=== PATIENT | male | born 1950 | race Caucasian/White ===

== ENCOUNTER 2022-10-28 08:20 | Outpatient (REF) | payer OTHER, SELFPAY ==
--- NOTE | 2022-10-28 08:28 | EMG_ITS ---
Bilateral tibial and peroneal motor studies were performed. Bilateral superficial peroneal and sural sensory studies were performed. Tibial H reflexes were obtained and paraspinal muscles were tested with a needle. IMPRESSION: [id number] axonal sensory motor chronic peripheral neuropathy. MD DELMER Davenport/ALEXIS / [phone]
== END 2022-10-28 08:21 | disposition home or self-care (01) ==
LOC: HO.NEURO 08:20
PROVIDERS: PCP Internal Medicine; Visit Provider Internal Medicine
DX: M62.81 Muscle weakness (generalized) (principal); R20.2 Paresthesia of skin
CPT/HCPCS: 95860; 95886; 95907; 95911

== ENCOUNTER 2023-07-21 07:51 | Outpatient (AMB) | payer OTHER, SELFPAY ==
--- NOTE | 2023-07-21 07:56 | A.OFFVIS_ITS ---
Vital Signs 07/21/23 08:08 Height 5 ft 9 in Weight 129 lb BMI 19.0 BP 126/86 Blood Pressure Location Rt brachial Position Sitting Pulse 56 Pulse Source Pulse Oximeter Pulse Oximetry (%) 100 Oxygen Delivery Method Room Air Intake Visit Reasons: ENP-Leg weakness/Unsta gait/lighthead - LVMw/add Intake Note: Patient presents for leg weakness,unstable gait. Allergies No Known Allergies Allergy (Verified 07/21/23 08:09) Medication List - Last Reconciled 07/21/23 by STEVEN Joy alpha lipoic acid 600 mg PO DAILY 30 days amlodipine 10 mg PO DAILY folic acid 1 mg PO DAILY multivitamin 1 tab PO DAILY HPI Comments Details: 73-yr-old male presents for new pt evaluation of gait difficulty. Pt reports for at least 6 months, when he stands up after sitting for a while or getting up from bed, has BLE numbness and tingling- like air in his posterior calves, and less so in bilateral thighs. When he stands up, he feels off- balance, like being pulled to the right or the left. Sometimes when on the ladder, he feels he is pulled to the side. Once when he was standing talking to someone for 45 minutes, and then it was difficult to initiate a step. He states he did PT, but it was helpful. Does exercises on his own, does not make a difference. He endorses occasional non-radiating neck pain. Pt denies foot numbness (he states he can feel the ground when walking), falls, leg cramps, weakness, low back pain. Pt states he has seen many providers, but no clear etiology for BLE numbness/tingling and gait difficulties have been identified. Pt states he is scheduled for CTA head/neck and Thoracic MRI. Pt is right handed. ADL status: Ind IADL status: Ind Fine-motor skills: No issues Micrographia: No issues Vision changes: denies vision changes, diplopia Hypophonia: Denies Hyposmia: Denies Dysphagia: Denies Drooling: Denies Orthostatic lightheadedness: Briefly. Occasional brief orthostatic internal spinning dizzines GI: Denies issue. Denies constipation. : Denies Slowness: Denies Freezing episodes: Only if sitting or standing a long time. Tremor: Denies Involuntary movements: Denies Dyskinesia: Denies Stiffness: Denies. Again sometimes occasional neck pain nonradiating. Paresthesias: as above Gait changes: as above Sleep difficulty: No issues Parasomnias: Denies Memory impairment: Hallucinations: States memory is good Usual exercise: does exercise, push-ups, weight training 4-5 x's every day- thought this would help the leg s/s, but it didn't. History of concussion/head injury? Denies History of neuroleptic (metoclopramide/antipsychotics) use? Denies History of psychiatric hospitalizations? Denies History of occupational chemical exposures? 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 Used to smoke- pt quit. Remote h/o alcohol intake- pt cannot quantify, states quit many yrs ago. Family history of movement disorders? Denies Family history of mood disorder or suicide? Denies Per review of [facility] and [facility] [place]: He has seen Dr Lindo, [facility] neurology, Dr Bassett, [facility] neurosurgery, and Dr Love, [facility] vascular. * 08/06/2022, Brain MRI, [facility]: No evidence of acute infarct, extensive white matter changes likely due to chronic small vessel ischemic changes. * 11/01/23, BLE EMG/NCS: [id number] axonal sensory motor chronic peripheral neuropathy. * 06/16/23, c-spine MRI w/o: 1. 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 Right vertebral artery flow-void is smaller in caliber than prior MRI from 2012 with circumferential abnormal high T2 signal suggesting dissection of indeterminate age. CTA of the neck is suggested for complete assessment. 2. Multilevel degenerative changes with mild canal stenosis at C5-6, though there is no cord compression at any level. 3. Mild multilevel neural foraminal stenosis due to uncovertebral and facet spurring. There is also edema in the right C4-5 facet suggesting underlying inflammation/stress. * 04/27/23, per Dr Lindo note- notes that pt has had at least 2 neuro visits at [facility] since 2012 for h/o of cramps and gait difficulties * 07/13/23, per Dr Love's notes: PVD, but not likely to be causing pt's BLE s/s. Right ABIs?noncompressible of the PT, DP 1.14 within normal values. Although some?vessel calcification, it does have a normal amplitude.? In the left side, WILLY is 1.33 within normal values, and it does have a normal amplitude as well. * 07/19/23, per Dr Bassett's note: c-spine and l-spine MRI showed age-related degenerative changes, which were not felt to be of a degree to cause pt's BLE s/s. Pt was advised to have t-spine MRI. [facility] lab work-up 07/08/23: BMP normal 12/2023: Sed rate 11 B6 9.3 B12 582 Folic acid 29.2 Thiamine 83.5 MMA 166 CK 193 Thiamine 83.5 SPEP no monoclonal protein present RICKI no monoclonal protein identified SPEP no monoclonal protein identified PFSH Medical History Tobacco use Surgical History (Updated 07/21/23 @ 16:02 by STEVEN Joy) H/O hemorrhoidectomy History of nephrectomy, left Social History (Updated 07/21/23 @ 08:10 by REJI Duran) Alcohol intake: never Patient Tobacco Use Status: Former Tobacco user Review of Systems Const All systems reviewed & are unremarkable except as noted in HPI and below Physical Exam Vital Signs: Last Vital Signs Pulse 56 07/21/23 08:08 BP 126/86 07/21/23 08:08 Pulse Ox 100 07/21/23 08:08 Oxygen Delivery Method Room Air 07/21/23 08:08 BMI result Body Mass Index 19.0 Const General: cooperative and no acute distress HEENT Face and sinus: Yes other (Decreased expression and blink) Resp Effort & Inspection: normal respiratory effort and able to speak in complete sentences Cardio Rate: regular rate Rhythm: regular rhythm Neuro Other: General: A&O x's 3 Expression: Intact, mild Voice: Intact Tremor: None Tone: None Dyskinesia: None BUE MYRON: right intact, left poor fluidity. FFM: Intact Foot taps: Poor fluidity on left Gait: Slow to stand w/o hands, no right arm swing, decreased left arm swing, mild hand movements, short steps, base varies- wider at times, slight RLE antalgic step. Pull test: Normla Psych: Pleasant affect General: Normal light touch and pain sensation Cranial nerves: Yes CN's II-XII intact bilaterally (w/ mild right facial asymmetry (? baseline)) Deep tendon reflexes (DTR's): Right triceps reflex intensity grade: 2+, Left triceps reflex intensity grade: 2+, Rt Biceps (C5, C6): 2+, Left biceps reflex intensity grade: 2+, Right brachioradialis reflex intensity grade: 2+, Left brachioradialis reflex intensity grade: 2+, Right patellar reflex intensity grade: 2+ and Left patellar reflex intensity grade: 2+ Coordination: [id number] test normal Psych Mental Status: mental status grossly normal Speech and movement: Normal speech and movement present Affect: normal affect Attitude: cooperative Thought process: Normal thought process present Results Reviewed Results Reviewed: 06/16/23, MRI Cervical Spine W/O Contrast Reason: Myelopathy. TECHNIQUE: MRI of the cervical spine was performed without intravenous contrast utilizing sagittal T1, sagittal T2, sagittal STIR, axial gradient echo, and axial T2-weighted sequences. COMPARISON: MRI, 10/27/2011. FINDINGS: ALIGNMENT, VERTEBRAE, MARROW, AND DISCS: There is slight reversal of the normal cervical lordosis without subluxation. Vertebral body heights are preserved. There is severe disc space narrowing at C3-4, as well as moderate disc space narrowing at C5-6 and C6-7. Small multilevel anterior osteophytes are seen as well as scattered mild Modic type I and type II endplate changes. There is also edema in the right C4-5 facets. POSTERIOR FOSSA AND CORD: Visualized posterior fossa is normal. The cervical cord is normal in signal and caliber. PARASPINAL TISSUES: The right vertebral artery is smaller in caliber than the MRI from 2012 with circumferential surrounding high T2 signal. There is also apparent focal occlusion of the proximal left cervical ICA with reconstitution, also new from the prior MRI. Subcentimeter right thyroid nodule is seen, which does not require further imaging assessment. DETAILED FINDINGS BY LEVEL: C2-C3: There is no significant disc bulge or canal stenosis. Left-sided facet spurring is seen without significant neural foraminal compromise. C3-C4: There is broad-based disc osteophyte without canal stenosis. Uncovertebral and facet spurring results in mild bilateral neural foraminal stenosis. C4-C5: There is disc osteophyte with a tiny central protrusion, though there is no significant canal stenosis. Uncovertebral and facet spurring result in mild bilateral neural foraminal stenosis. C5-C6: There is broad-based disc osteophyte and posterior ligamentous buckling resulting in mild canal stenosis. Uncovertebral and facet spurring results in mild bilateral neural foraminal stenosis. C6-C7: There is disc osteophyte without significant canal stenosis. Uncovertebral spurring results in mild bilateral neural foraminal stenosis. C7-T1: No significant canal stenosis or neural foraminal narrowing. IMPRESSION: 1. 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 Right vertebral artery flow-void is smaller in caliber than prior MRI from 2012 with circumferential abnormal high T2 signal suggesting dissection of indeterminate age. CTA of the neck is suggested for complete assessment. 2. Multilevel degenerative changes with mild canal stenosis at C5-6, though there is no cord compression at any level. 3. Mild multilevel neural foraminal stenosis due to uncovertebral and facet spurring. There is also edema in the right C4-5 facet suggesting underlying inflammation/stress. 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 Discussed with patient that we can not comment today on the etiology of his bilateral lower extremity symptoms, as we do need to obtain additional records and see the results of his upcoming test results. Trial alpha lipoic acid 600 mg daily in hopes this reduces tingling sensation. Discussed doing PT again, patient declines at this time. Pt seen in collaboration w/ Dr Tammy Jules. Follow-up upon review of above. And in clinic in 6 months or sooner p.r.n.. Medications: New alpha lipoic acid 600 mg PO DAILY 30 tabs 6RF 30 days G62.9 - Polyneuropathy, unspecified Coding Level of Care Code New Pt Level 4 (00362) Diagnoses Gait difficulty R26.9 Sensory motor neuropathy G62.9
[2023-07-21 08:08] VITALS: BP 126/86; PULSE 56; O2SAT 100; BMI 19.0
== END 2023-07-21 09:25 | disposition home or self-care (01) ==
PROVIDERS: PCP Internal Medicine; Visit Provider Nurse Practitioner Family
DX: R26.9 Unspecified abnormalities of gait and mobility (principal); G62.9 Polyneuropathy, unspecified
CPT/HCPCS: 99204

== ENCOUNTER → 2023-07-21 07:51 | Outpatient (BNVA) | payer OTHER, SELFPAY | PROVIDERS: PCP Internal Medicine; Visit Provider Nurse Practitioner Family | DX: R26.9 Unspecified abnormalities of gait and mobility (principal); G62.9 Polyneuropathy, unspecified | CPT/HCPCS: 99202 ==

== ENCOUNTER 2024-03-28 08:54 | Outpatient (AMB) | payer OTHER, SELFPAY ==
--- OUTSIDE RECORDS SUMMARY | 2024-03-28 08:59 | XMS_ITS | Continuity of Care Document ---
Author Organization [facility] Address [address] [place] [id number] Care Team Providers Care Case Monitor Name Role Phone Roldan Price DO [facility] Care Phys[id number] Date(s): 02/22/24 - 02/29/24 [facility] [address] [place], [place] [address] Attending Physician: Humaira AGUILA, Belkys Thapa Admitting Physician: Humaira AGUILA, Belkys Thapa Referring Physician: Roldan Prcie DO Encounter Type: Office Visit Allergies, Adverse Reactions, Alerts No Known Allergies Medications aspirin 81 mg oral capsule 1 capsule = 81 mg, By Mouth, Every 24 hours, # 30 capsule, 0 Refills, Maintenance, 08/18/23 5:01:00 PM EDT, Partial fill upon patient request if the prescription is for a schedule II opioid drug. Start Date: 08/18/23 Status: Ordered Quantity: 30.0 Unit: capsule Repeat number: 1 atorvastatin 20 mg oral tablet 1 tablet = 20 mg, By Mouth, Daily, # 90 tablet, 2 Refills, Maintenance, 08/23/23 12:21:00 PM EDT, Tablet, [id number], Partial fill upon patient request if the prescription is for a schedule II opioid drug., 175, cm, 07/19/23 8:54:00 EDT, Height, 55.7, kg, 01/04/22 8:17:00 EDT, Dry Weight Start Date: 08/23/23 Status: Ordered Quantity: 90.0 Unit: tablet Repeat number: 3 Cymbalta Capsule = 30 mg, By Mouth, Daily, 0 Refills, Maintenance, 06/30/17 8:04:06 AM EDT Start Date: 06/30/17 Status: Ordered Repeat number: 1 docusate sodium 100 mg oral capsule 1 capsule = 100 mg, By Mouth, 2 times a day, # 60 capsule, 0 Refills, Maintenance, 12/03/23 10:34:00AM EDT, Capsule, [facility] #[id number], Partial fill upon patient request if the prescriptionis for a schedule II opioid drug., 175, cm, 12/03/23 8:13:00 EDT, Height, 66, kg, 12/01/23 16:42:00EDT, Dry Weight Start Date: 12/03/23 Status: Ordered Quantity: 60.0 Unit: capsule Repeat number: 1 folic acid 1 mg oral tablet 1 mg, 1, tablet, By Mouth, Daily, Refills 0, Maintenance, 06/30/17 8:04:02 AM EDT Start Date: 06/30/17 Status: Ordered Repeat number: 1 Lidoderm 5% film 1 each, Topically, Daily, # 30 patch, 0 Refills, Maintenance, 03/25/21 2:36:00 PM EST, [facility] #[id number], Partial fill upon patient request if the prescription is for a schedule II opioid drug., 1 each Topically Daily, 176, cm, 01/02/21 9:18:00 EDT, Height, 64, kg, 01/02/21 9:18:00 EDT, DryWeight Start Date: 03/25/21 Status: Ordered Quantity: 30.0 Unit: patch Repeat number: 1 Norvasc 10 mg oral tablet 1 tablet = 10 mg, By Mouth, Daily, 0 Refills, Maintenance, 06/19/13 3:04:28 PM EDT Start Date: 06/19/13 Status: Ordered Repeat number: 1 tamsulosin 0.4 mg oral capsule 0.4 mg, 1, capsule, By Mouth, Daily, # 30 capsule, Refills 0, Tot. Refills 0, Maintenance, 12/03/23 10:35:00 AM EDT, Route to Pharmacy Electronically, [facility] #[id number], Partial fill upon patient request if the prescription is for a schedule II opioid drug., 175, cm, 12/03/23 8:13:00 EDT, H eight, 66, kg, 12/01/23 16:42:00 EDT, Dry Weight Start Date: 12/03/23 Status: Ordered Quantity: 30.0 Unit: capsule Repeat number: 1 Vitamin B-12 1000 mcg oral tablet 1 tablet = 1,000 mcg, By Mouth, Daily, # 30 tablet, 0 Refills, Maintenance, 04/22/15 11:51:52 AM EST,Tablet Start Date: 04/22/15 Status: Ordered Quantity: 30.0 Unit: tablet Repeat number: 1 Problem List Condition Confirmation Course Effective Dates Status H ealth Status Informant Gait instability Confirmed Active Carotid artery stenosis without cerebral infarction Confirmed Active Tobacco use Confirmed Active H/O hemorrhoidectomy Confirmed Active Hyperlipidemia Confirmed Active HTN (hypertension) Confirmed Active Anemia, iron deficiency Confirmed Active LVH (left ventricular hypertrophy) Confirmed Active Lung nodule Confirmed Active Renal cancer s/p left nephrectomy Confirmed Active Ureter cancer Confirmed Active PVD (peripheral vascular disease) Confirmed Active Right renal artery stenosis Confirmed Active Vital Signs Most recent to oldest [Reference Range]: 1 Height 175 cm (02/22/24 2:36 PM) Weight 58 kg (02/22/24 2:36 PM) Oxygen Saturation [94-100 %] 97 % (02/22/24 2:36 PM) Pulse Rate [55-90 bpm] 52 bpm *L* (02/22/24 2:36 PM) Body Mass Index [18.5-24.99 kg/m2] 18.94 kg/m2 (02/22/24 2:36 PM) Blood Pressure [90-138/55-84 mm Hg] 130/ 60mm Hg (02/22/24 2:36 PM) Mode of Delivery (Oxygen) Room air (02/22/24 2:36 PM) Blood pressure sites Arm, right (02/22/24 2:36 PM) Weight Obtained Via Patient/family state d (02/22/24 2:36 PM) Social History Social History Type Response Smoking Status Former smoker, quit more than 30 days ago entered on: 04/27/23 Sex Sex Representation Male (finding) Note * Belkys Meyer: PERFORM Event Display: Patient Education/Instruction Authored Date: Ambulatory [place] [address] Name: JOANA HERNANDEZ : 1950?? Visit: 02/22/2024 14:29?? Ambulatory Visit Instructions ?? Your Care Team Primary Care Provider Roldan Price DO? This Visit Provider Humaira AGUILA , Belkys Thapa Your Diagnosis Carotid artery stenosis Vitals Signs Pulse Rate:??52 bpm??Low Height: 175 cm Systolic Blood Pressure: 130 mm Hg Weight: 58 kg Diastolic Blood Pressure: 60 mm Hg Body Mass Index: 18.94 kg/m2 Oxygen Saturation: 97 % Body surface area: 1.68 What to do next Future Orders Creatinine - Routine, Once, 06/17/23 8:52:00 EDT, Future Order, [facility], Blood?? Creatinine - Routine, Once, 07/20/23 12:31:00 EDT, Future Order, [facility], Blood?? Medications The list below reflects the information in our records and provided by you today along with any changes made during this visit. Please continue your medications until treatment is completed or stopped by your provider. If this is different from the information you have or there are other questions,please contact the prescribing provider. What How Much When Instructions Unchanged Amlodipine (Norvasc 10 mg oral tablet) 1 tab(s) Oral Daily Unchanged Aspirin (aspirin 81 mg oral capsule) 1 capsule Oral Every 24 hours Unchanged Atorvastatin (atorvastatin 20 mg oral tablet) 1 tab(s) Oral Daily Unchanged Cyanocobalamin (Vitamin B-12 1000 mcg oral tablet) 1 tab(s) Oral Daily Unchanged Docusate (docusate sodium 100 mg oral capsule) 1 capsule Oral Twice a day Unchanged Duloxetine (Cymbalta Capsule) 30 Milligram Oral Daily Unchanged Folic Acid (folic acid 1 mg oral tablet) 1 tab(s) Oral Daily Unchanged Lidocaine Topical (Lidoderm 5% film) 1 Each Topically Daily Unchanged Tamsulosin (tamsulosin 0.4 mg oral capsule) 1 capsule Oral Daily Medications and Immunizations Administered Medications Given During Visit No medications given during this visit.?? Allergies (NKA means No Known Allergies) NKA Common Emergency Awareness Tips IS IT A STROKE? Act FAST and Check for these signs: FACE Does the face look uneven? ARM Does one arm drift down? SPEECH Does their speech sound strange? TIME Call at any sign of stroke ?? Heart Attack Signs Chest discomfort: Most heart attacks involve discomfort in the center of the chest and lasts more than a few minutes, or goes away and comes back. It can feel like uncomfortable pressure, squeezing, fullness or pain. Discomfort in upper body: Symptoms can include pain or discomfort in one or both arms, back, neck, jaw or stomach. Shortness of breath: With or without discomfort. Other signs: Breaking out in a cold sweat, nausea, or lightheaded. Remember, MINUTES DO MATTER. If you experience any of these heart attack warning signs, call to get immediate medical attention! ?? Smoking can increase your chances of developing chronic health problems and can cause harmful effects to other family members in your house. If you smoke, you are strongly encouraged to quit. Please call [facility] at [phone] or [phone]) or log in to [email or web address] for referrals to smoking cessation programs. ?? The National Suicide Prevention Hotline is available 11/10 if you or someone you know needs to find a reason to keep living. By calling 5-910-402-PeopleMatter (7116) you'll be connected to a skilled, trained counselor at a crisis center in your area. [facility] You can view and manage your care through the patient portal or by using a health care lupe of your choosing. [employer] is a website that allows you to securely view your medical information including your hospital discharge summary, office visit summaries, medications and follow-up visits. You can also request appointments, renew medications, and request access to your medical information using a health care lupe of your choosing, or just ask a question. You can enroll at [email or web address] or register during your next office visit. [facility], in keeping with [facility] guidance, no longer requires face masks for staff, patientsor visitors in most situations. Similiar to time spent indoors at other locations, there is the chance that you were exposed to repiratory viruses during your time with us (such as flu or COVID-19). If you develop symptoms concerning for a viral respiratory infection, please seek testing (and treatment if indicated) from your medical provider or home test kit. ?? Disclaimer: The information provided is of a general nature and is intended to be used in conjunction with the recommendations and advice of your health care practitioner. Every effort has been made to ensure that the information provided is accurate and complete at the time it is provided to you however, as your needs change, or, as new information becomes available, different or additional instructions may be required. ?? If you have questions, please consult with your primary care provider or pharmacist, as appropriate. This information is not intended to serve as substitution for assessment and evaluation by a qualified health care provider. If you do not have a primary care provider, you may find a [facility] provider by calling [facility] at [phone]. Patient Care team information Care Team Personnel Name: Vida Dumont RN Position: [facility] RN Member Role: Primary Care Nurse Name: Roldan Price DO Position: [facility] Outreach Member Role: PCP Address: [address] [place] [id number] Telecom: Name: Shelia Buchanan RN Position: [facility] RN Member Role: Primary Care Nurse Care Team Related Persons Name: TATIANNA GRIMALDO Insurance Providers Guarantor name: JOANA HERNANDEZ Health Plan Information #: 1 Payer: NA Member Number: [id number] Policy Number: NA Group Number: [facility] Health Plan Information #: 2 Payer: NA Member Number: [id number] Policy Number: NA Group Number: NA
--- OUTSIDE RECORDS SUMMARY | 2024-03-28 08:59 | XMS_ITS ---
Author Name [facility] Organization Unknown History of Medication Use Medication Directions Dispensed Refills Start Date End Date Stat gabapentin 100 mg capsule TAKE 1 TO 3 CAPSULES BY MOUTH DAILY 07/01/2023 active duloxetine 30 mg capsule,delayed release TAKE 1 CAPSULE BY MOUTH EVERY DAY 06/11/2023 active multivitamin tablet TAKE 1 TABLET BY MOUTH EVERY DAY 06/11/2023 active folic acid 1 mg tablet TAKE 1 TABLET BY MOUTH EVERY DAY 06/11/2023 active amlodipine 10 mg tablet TAKE 1 TABLET BY MOUTH EVERY DAY 06/11/2023 active Problems Problem Status Onset Date Problem Type Date of Resoluti on Source Radicular pain active 2023-06-09 ProblemAct E[facility] _AONECT Paresthesia of right lower limb active 2023-06-29 ProblemAct E[facility]
--- OUTSIDE RECORDS SUMMARY | 2024-03-28 08:59 | XMS_ITS | Data Portability ---
Author Organization [place] [facility]se[facility] [place] Address [address] [facility] [address] [place] [address] Care Team Providers Care Clerk Entry Level Name Role Phone NEAL WILSON Referring Provider NEAL WILSON Primary Care Provider Assessment Encounter Date Assessment Date Assessment LastModified by Organization Details LastModified Time 06/09/2023 06/09/2023 73-year-old male with bilateral leg paresthesias and instability in his legs which has been ongoing he has seen multiple specialists and has further workup by additional specialist for his symptoms however he does reveal degenerative lumbar back disease. Plan at this point is I will send him for an MRI of the lumbar spine rule out cord compression/impin gement if positive I may refer him to a neurosurgical specialist. I will send him for a Lyme titer to work out indolent Lyme disease if this is positive we may refer him to a farm management teacher versus have him follow-up with his primary care. He does not have any red flag symptoms at today's visit or complaints thereof. I will see him back after his MRI of his lumbar spine is complete he agrees with this plan. Patient was seen and evaluated by Hari Bautista PA-C in indirect conjuction with Documenting Provider: Phill Rodriguez MD . He/She agrees with history, physical examination, tests/diagnostic imaging, and treatment plan. Additional treatment plan discussed with the patient (only initiated if in boldface font) otherwise not applicable. Treatment may include the following; - Provider focused nonsteroidal anti-inflammatory regimen (discussed were the pros, cons, benefits and risks as well as any black box warnings) in patients over 60 years old they should be very cautious in taking these medications due to potential decreased kidney function and or elevated blood pressure. - Analgesic pain medication for pain suppression (discussed were the pros, cons, benefits and risks as well as any black box warnings) - The use of topical pain relieving medication were discussed - The use of ice to decrease inflammation and pain - The use of assistive ambulatory devices for ambulation and fall prevention - Formal specific guided physical therapy program I reviewed my findings at length with the patient today. ??We discussed the nature and etiology of this problem along with current treatment options. We discussed the expected course and outcomes and what to expect. We also discussed risks and benefits. ?? All of their questions were answered today, and there was exhibited understanding and comprehension of all that was discussed. Time Spent: 15minutes were spent reviewing previous imaging and charting. ??15 minutes were spent obtaining patient history. ??10 minutes were spent on physical exam. ??5??minutes were spent explaining diagnosis and assessment. Today's documentation was made using voice recognition software. This note may contain grammatical errors secondary to the software. Not available 06/09/2023 11:19:27 06/29/2023 06/29/2023 73-year-old male following up on his MRI results as well as his Lyme titer which was negative. He is straightening of the lumbar lordosis degenerative changes throughout the lumbar spine L1-S1 without any significant stenosis or impingement. I will refer him to [facility] neurosurgery for evaluation. He understands he needs to follow-up with his other providers regarding results. Patient was seen and evaluated by Hari Bautista PA-C in indirect conjuction with Documenting Provider: Phill Rodriguez MD . He/She agrees with history, physical examination, tests/diagnostic imaging, and treatment plan. Additional treatment plan discussed with the patient (only initiated if in boldface font) otherwise not applicable. Treatment may include the following; - Provider focused nonsteroidal anti-inflammatory regimen (discussed were the pros, cons, benefits and risks as well as any black box warnings) in patients over 60 years old they should be very cautious in taking these medications due to potential decreased kidney function and or elevated blood pressure. - Analgesic pain medication for pain suppression (discussed were the pros, cons, benefits and risks as well as any black box warnings) - The use of topical pain relieving medication were discussed - The use of ice to decrease inflammation and pain - The use of assistive ambulatory devices for ambulation and fall prevention - Formal specific guided physical therapy program I reviewed my findings at length with the patient today. ??We discussed the nature and etiology of this problem along with current treatment options. We discussed the expected course and outcomes and what to expect. We also discussed risks and benefits. ?? All of their questions were answered today, and there was exhibited understanding and comprehension of all that was discussed. Time Spent: 10 minutes were spent reviewing previous imaging and charting. ??10 minutes were spent obtaining patient history. ??5 minutes were spent on physical exam. ??5??minutes were spent explaining diagnosis and assessment. Today's documentation was made using voice recognition software. This note may contain grammatical errors secondary to the software. Not available 06/29/2023 09:41:06 Plan of Treatment Reminders Order Date Submit Date Provider Last Modified By Organization Details Last Modified Time Details Appointments None recorded. Lab lyme antibody screen, EIA/brian, serum - Joint pain, eval for systemic cause 2023 024 NADINE Not available 4 09:06:40 Referral neurologica l surgeon referral 2023 024 NADINE Not available 4 08:51:55 Procedures None recorded. Surgeries None recorded. Imaging MRI, lumbar spine, w/o contrast - Lumbar back pain with radicular symptoms paresthesia s in bilateral extremities with degenerativ e disc disease on x-ray 2023 024 NADINE [facility], [address], [place], [address], 4 08:53:57 XR, lumbosacral spine, 2 or 3 view 2023 024 [email or web address] [facility], [address], [address], [place], [address], 4 15:11:43 Medication Orders None recorded. Patient TargetsNo targets recorded. Patient Instructions Encounter Date Encounter Id Patient Instructions Last Modified By Organization Details Last Modified Time 06/09/2023 [id number] X-rays of the lumbar spine reveal extensive degenerative disease within the lumbar spine with anterior osteophyte formation from T12 down to S1 with significant narrowing of L5-S1 no obvious acute bony abnormality is noted. Not available 06/09/2023 11:18:53 Reason for Referral Neurological Surgeon Referra l for Paresthesia of right lower limb Referring Physician: Hari Bautista, Orthopedic Surgery, Encounter Date: 06/29/2023 Results Created Date Observation Date Name Description Value Unit Range Abnormal Flag Note LastModifiedBy Organization Detail LastModifiedTime 06/27/19 24 06/27/2023 MRI, lumba r spine , w/o contr ast No observ ation record ed. [email or web address] [facility] [address] [place], [address], 06/28/2023 10:25:50 Result Notes None recorded. Problems Name Problem SNOMED Code Status Onset Date Resolution Date Notes Provider Name and Address Organization Details Recorded Time Radicular pain 73792971 Active 2023 HARI BAUTISTA PA-C [address], [place], [address], [place] [facility] 4 11:09:10 Paresthesia of lower extremity 451281584 Active 2023 HARI BAUTISTA PA-C [address], [place], [address], [place] [facility] 4 11:10:18 Paresthesia of right lower limb 1703846628031 9106 Active 2023 HARI BAUTISTA PA-C [address], [place], [address], [place] [facility] 4 09:41:42 Problem Notes None recorded. Procedures Surgical History Date Name Laterality Status Provider Name and Address Organization Details Recorded Time total nephrectomy completed Lisa Orozco [facility] 06/09/2023 10:36:23 Imaging Results Imaging Date Name Status LastModified by Organiz ation Details LastModified Time 06/27/2023 MRI, lumbar spine, w/o contrast completed [email or web address] [facility] [address] [place], [address], 06/28/2023 10:25:50 Procedure Notes None recorded. Medical Equipment None Reported. Allergies No known drug allergies Medications Name Sig Start Date Stop Date Status Note LastModified by Organization Details LastModified Time multivitamin tablet TAKE 1 TABLET BY MOUTH EVERY DAY active Not Available Not Available No t Available amlodipine 10 mg tablet TAKE 1 TABLET BY MOUTH EVERY DAY active Not Available Not Available No t Available folic acid 1 mg tablet TAKE 1 TABLET BY MOUTH EVERY DAY active Not Available Not Available No t Available gabapentin 100 mg capsule TAKE 1 TO 3 CAPSULES BY MOUTH DAILY active Not Available Not Available No t Available duloxetine 30 mg capsule,delaye d release TAKE 1 CAPSULE BY MOUTH EVERY DAY active Not Available Not Available No t Available Vitals Date Recorded Body height Body mass index (BMI) Body weight Provider Name and Address Organization Details Last Updated DateTime 06/09/2023 175.26 cm 21.4 kg/m2 50833.89 g [facility], 06/09/2023 10:34:23 Social History Question Answer Notes LastModified by Organizat ion Details LastModified Time Tobacco Smoking Status Never Smoker Lisa Orozco null, [place] [facility] 06/09/2023 10:34:33 What Is Your Level Of Alcohol Consumption? None Information not available 06/09/2023 Do You Use Any Illicit Or Recreational Drugs? No Information not available 06/09/2023 Do You Or Have You Ever Used Any Other Forms Of Tobacco Or Nicotine? No Information not available 06/09/2023 Sex: Unknown Functional Status None recorded. Mental Status None recorded. Family History Relationship Description Onset Age of this Age Resolved Age Notes LastModified by Organization Details LastModified Time Mother Family history of malignant neoplasm Not available 2023 10:34:49 Father Heart disease Not available 2023 10:35:02 Sister Hypercholest erolemia Not available 2023 10:35:12 Medical History Condition Response Hypertension Y Kidney Disease Y Past Encounters Encounter ID Performer Location Encounter Start Date Encounter Closed Date Diagnosis/Indication Diagnosis SNOMED-CT Code Diagnosis ICD10 Code Diagnosis Note [id number] MD RAKESH Ag [address] [place] [address] [place] [address] 06/09/2023 09:51:36 06/09/2023 11:17:52 Low back pain 180676122 M54.50 Additional diagnosis detail: Lumbar pain Radicular pain 49417399 M54.10 Additional diagnosis detail: Radicular low back pain with paresthesi as Paresthesi a of lower extremity 323587875 R20.2 Additional diagnosis detail: [place]hes[place] a [id number] MD RAKESH Ag Noemynick marley [address] [facility] [address] [place] [address] 06/29/2023 09:04:41 06/29/2023 09:37:59 Radicular pain 71851203 M54.10 Additional diagnosis detail: Radicular low back pain with paresthesi as Paresthesi a of right lower limb 3505727502 4572657 R20.2 Additional diagnosis detail: Paresthesi a of right lower extremity Health Concerns Section Related Observation LastModified by Organization Detai ls LastModified Time None Recorded Concern Status LastModified by Organization Details LastModified Time None Recorded Advance Directives Directive None Recorded Payers Encounter Date Sequence Insurance Name Policy Number Policy Coleman Covered Member ID Coleman Member ID Guarantor Name 06/09/2023 1 [facility] - DOS ON OR AFTER 2022 - INTERMEDIATE OPTIONS AND ONE CARE (MEDICARE REPLACEMENT/AD VANTAGE - PPO) Joaan Hernandez [id number] Joana Hernandez 06/29/2023 1 [facility] - DOS ON OR AFTER 2022 - INTERMEDIATE OPTIONS AND ONE CARE (MEDICARE REPLACEMENT/AD VANTAGE - PPO) Joana Hernandez [id number] Joana Hernandez Notes Date Note Type Note Provider Name and Address Organization Details Recorded Time 4 text/html This is a very pleasant 73-year-old male who comes in with chief complaint of bilateral lower extremity numbness and tingling with upper thigh pain for which he states he has instability in his legs at times this has been going on for approximately 8 months with intermittent low back pain. 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 He states he has been seen by neurology at [facility], Dr. Gonzalez [facility] vascular surgery for which she is having workup with bilateral lower extremity ultrasounds he states he has had a nerve conduction study EMG at [facility] and he has been seen by [facility] in October 2022. Information was obtained from patient and son from chart. He denies any urinary or bowel changes denies any saddle anesthesia. He does state on intentional weight loss of 20 pounds over a number of years. He attributes this to being very physically active. He denies current calf pain denies history of blood clots denies shortness of breath. Images that were reviewed within the [facility] PACS system were his brain MRI, bilateral tib-fib x-rays and chest x-rays were reviewed. Pertinent to his medical history he had a left nephrectomy for which she states was approximately 15 years ago due to kidney cancer. He states he gets annual checks [facility] [address] [place] [address] Pat ient: JOANA HERNANDEZ/Age/Sex: 1950 - 72 - MUnit#: [id number] Location/Status: SPDIMRI/REG CLIAccount#: [id number] Mnemonic/Ordering Site: BRAINWO/SPMAINOrdering Physician: NEAL WILSON MD MR Brain WO - 08/06/22 -MRI brain without gadolinium. August 063Clinical history: Bilateral leg weakness.Comparison: CT brain dated November 23, 2015.Technique: Multiplanar multi sequential MRI images of the brain wereobtained without gadolinium.Findings:There is no diffusion abnormality. There is no susceptibility artifact.There is moderate diffuse brain parenchymal volume loss. The major vascularflow voids are patent. Mild paranasal sinus disease is seen. Axial FLAIRsequence demonstrates extensive hyperintense foci throughout the subcortical, deep and periventricular white matter, nonspecific. There arewhite matter changes of the deejay. The midline anatomy and the craniocervicaljunction are intact.Impression:1. No evidence of an acute infarct.2. Extensive nonspecific white matter changes are likely due to chronic small vessel ischemic demyelination in this age group.Dictating Physician: JESSE LOWRY MDElectronically Signed by: JESSE LOWRY MDDic Date/Time: 08/07/222106Sign date/Time: 08/07/222106 [facility] [address] [place] [address] [address] ient: JOANA HERNANDEZ/Age/Sex: 1950 - MUnit#: [id number] Location/Status: SPDIGEN/REG CLIAccount#: [id number] Mnemonic/Ordering Site: [facility] Physician: NEAL WILSON MD CR Tibia Fibula Bilat 2 Views - 07/30/22 - 0941HISTORY: The patient is a 72-year-old male with pain in the left lower leg.No history of trauma is provided.FINDINGS: AP and lateral radiographs of the left tibia and fibula areobtained. The study demonstrates no fracture, dislocation, arthriticchange, or other bony normality. No soft tissue abnormality is seen.IMPRESSION: Normal examination.Code 48525Hwlbchgdc Physician: TONI COLLAZO MDElectronically Signed by: TONI COLLAZO MDDic Date/Time: 07/30/2252Sign date/Time: 07/30/22951 [facility] [address] [place] [address] Pat ient: JOANA HERNANDEZ/Age/Sex: 1950 - 72 - MUnit#: [id number] Location/Status: SPDIGEN/REG CLIAccount#: [id number] Mnemonic/Ordering Site: CHESTXR/SPDIOrdering Physician: NEAL WILSON MD DR Chest Routine 2 Views - 07/05/22 - 0926HISTORY: The patient is a 72-year-old male former smoker with productivecough.FINDINGS: PA and lateral radiographs of the chest demonstrate milddegenerative change of the thoracic spine as also seen on the prior study of11/15/2013. The cardiac silhouette is within normal limits. The aortic knobis calcified. The lungs are again seen to be hyperinflated with flatteningof the diaphragm consistent with chronic obstructive pulmonary disease.There is no consolidation, mass, pulmonary vascular congestion, or pleural effusion.IMPRESSION: No acute pulmonary disease. Findings as above consistent withCOPD. No change since 11/15/2013.Code [id number] Physician: TONI COLLAZO MDElectronically Signed by: TONI COLLAZO MDDic Date/Time: 07/05/22 0943Sign date/Time: 07/05/22 0943 HARI BAUTISTA PA-C [address] [address], [place], [address], [place] [facility] 06/09/2023 11:19:38 4 text/html Patient is here for follow-up on his MRI results of his lumbar spine. No changes since his initial visit on 06/09/2023. Patient also had a MRI of his cervical spine for which a Dr. Porter Lindo ordered he is yet to follow-up with him. He is also to be seeing vascular surgery at [facility] due to possible claudication of his lower extremities. Patient denies any changes in bladder or bowel habits or saddle anesthesia. Lyme titer negative [facility] [address] [place] [address] Pat ient: JOANA HERNANDEZ/Age/Sex: 1950 - 73 - MUnit#: [id number] Location/Status: SPDIMRI/REG CLIAccount#: [id number] Mnemonic/Ordering Site[facility]: HARI BAUTISTA MR Lumbar Spine WO - 06/26/23 -Report Status:SignedMRI of the lumbar spine, 06/27/2023 8:41 AM.TECHNIQUE: Multiplanar multisequence MRI of the lumbar spine withoutintravenous contrast administration.HISTORY: Lower back pain with radicular symptoms and paresthesias in thelower extremities. COMPARISON: None.FINDINGS:The left kidney is not visualized. There is moderate lower lumbar andsacral paraspinous muscular atrophy. Paraspinous soft tissues are otherwiseunremarkable. Straightening of the typical lumbar lordosis. Alignment is normal.Minimal Baastrup's changes. No compression deformity. No concerning marrowinfiltrative lesion. The conus is in a normal position at T12-L1.Lumbar disc levels:L1-2: Mild disc space height loss and endplate irregularity. Minimaldegenerative changes of the facet joints. No significant spinal orforaminal stenosis.L2-3: Mild disc space height loss and endplate irregularity. Minimaldegenerative changes of the facet joints. No significant spinal orforaminal stenosis.L3-4: Mild-moderate endplate irregularity. Minimal degenerative changes ofthe facet joints. No significant spinal or foraminal stenosis.L4-5: Mild endplate irregularity. Minimal degenerative changes of thefacet joints. No significant spinal or foraminal stenosis.L5-S1: Moderate disc space height loss and endplate irregularity. Smallendplate osteophytes and mild degenerative changes of the facet joints.Mild bilateral foraminal stenosis. No significant spinal stenosis. IMPRESSION:Straightening of the typical lumbar lordosis degenerative changes asdetailed above but no significant spinal or foraminal stenosis. Dictating Physician: CHARLOTTE SARKAR MDElectronically Signed by: CHARLOTTE SARKAR [facility] Date/Time: 06/27/23 0841Sign date/Time: 06/27/23 0845 HARI BAUTISTA PA-C [address] [place] [address], [address], [place] [facility] 06/29/2023 09:42:21
--- OUTSIDE RECORDS SUMMARY | 2024-03-28 08:59 | XMS_ITS | Continuity of Care Document ---
Author Organization [facility] Address [address] [place] [address]- Care Team Providers Care Program Support Clerk Name Role Phone Roldan Price DO Primary Care Physician [id number] Date(s): 12/15/23 - 03/16/[address] [facility] [address] [place], [place] [address] Attending Physician: Humaira GAUILA, Belkys Thapa Admitting Physician: Humaira AGUILA, Belkys Thapa Referring Physician: Roldan Price DO Encounter Type: Pre Office Visit Allergies, Adverse Reactions, Alerts No [...] Refills, Maintenance, 08/23/23 12:21:00 PM EDT, Tablet, [id number], Partial fill upon patient request if the [...] 0 Refills, Maintenance, 12/03/23 10:34:00AM EDT, Capsule, [id number], Partial fill upon patient request if the [...] 0 Refills, Maintenance, 03/25/21 2:36:00 PM EST, [id number], Partial fill upon patient request if the [...] 10:35:00 AM EDT, Route to Pharmacy Electronically, [facility][id number], Partial fill upon patient request if the [...] Active Right renal artery stenosis Confirmed Active Social History Social History Type Response Smoking Status Former smoker, quit more than 30 days ago entered on: 04/27/23 Sex Sex Representation Male (finding) Patient Care team information Care Team Personnel Name: Vida Dumont RN Position: [facility] RN Member Role: Primary Care Nurse Name: Roldan Price DO Position: [facility] Outreach Member Role: PCP Address: [address] [place], [place] [id number] [address] Telecom: Name: Shelia Buchanan RN Position: [facility] RN Member Role: Primary Care Nurse Care Team Related Persons Name: TATIANNA GRIMALDO Insurance Providers Guarantor name: JOANA HERNANDEZ Health Plan Information #: 1 Payer: NA Member Number: [id number] Policy Number: NA Group Number: [facility] Plan Information #: 2 Payer: NA Member Number: [id number] Policy Number: NA Group Number: NA
[2024-03-28 09:14] VITALS: BP 128/58; PULSE 53; O2SAT 97; BMI 18.6
--- NOTE | 2024-03-28 09:14 | A.OFFVIS_ITS ---
Vital Signs 03/28/24 09:14 Height 5 ft 9 in Weight 126 lb BMI 18.6 BP 128/58 L Blood Pressure Location Rt brachial Position Sitting Pulse 53 Pulse Source Pulse Oximeter Pulse Oximetry (%) 97 Oxygen Delivery Method Room Air Intake Visit Reasons: 7 month F/U [employer] Required: No Accompanied by: Self / Same As Patient Allergies No Known Allergies Allergy (Verified 03/28/24 09:17) Medication List - Last Reconciled 03/28/24 by STEVEN Joy alpha lipoic acid 600 mg PO DAILY 30 days amlodipine 10 mg PO DAILY aspirin 81 mg PO DAILY atorvastatin 20 mg PO DAILY folic acid 1 mg PO DAILY multivitamin 1 tab PO DAILY HPI Comments Details: 73-yr-old male presents for f/u of gait difficulty. Pt underwent left carotid endarterectomy on 12/01/[address] Benitez. He states this did not affect his gait difficulty in any way. He is scheduled for abdominal imaging d/t episodes of brief left abd sharp pains. He states his gait problem is the same. He states he tried the alpha lipoic acid, but it did not make any difference. He is taking 5 different supplements at home- states he will bring a list of them in to us. States his PCP has referred him to [facility]?, as he asks for a referral to [place] as he has not gotten any clear answers related to his gait issues. States one-person tells him 1 thing, and another tells him another thing. For instance, somebody told him to stop his BP medications, and his PCP told him not to. The he did undergo thoracic spine MRI W/O in July 2023, which showed multilevel degenerative changes without significant canal stenosis or neural foraminal narrowing. He continues to feel that when he is walking he feels off-balanced, like he is being pulled to the left or the right. Feels like he could fall at times, but never has fallen. He continues to feel numbness in the back of his calves. However, he states he is no longer having tingling in his legs. He still sometimes has difficulty initiating a step. Sometimes he can feel like the nerve is shaking in his legs. He does walk at least a mile every day. Also does a foot peddler every day. He states overall he exercises 4 times a day- push-ups, leg lifts, reaching for his toes, stretching. He does carry his laundry to the laundromat without difficulty, about a 1/4 mile up/down hill. 08/12/2023, MRI Thoracic Spine W/O Contrast: IMPRESSION: Degenerative changes throughout the thoracic spine but no significant canal stenosis or neural foraminal narrowing. Initial HPI from 07/21/2023: Pt reports for at least 6 months, when he stands up after sitting for a while or getting up from bed, has BLE numbness and tingling- like air in his posterior calves, and less so in bilateral thighs. When he stands up, he feels off- balance, like being pulled to the right or the left. Sometimes when on the ladder, he feels he is pulled to the side. Once when he was standing talking to someone for 45 minutes, and then it was difficult to initiate a step. He states he did PT, but it was helpful. Does exercises on his own, does not m cristine a difference. He endorses occasional non-radiating neck pain. Pt denies foot numbness (he states he can feel the ground when walking), falls, leg cramps, weakness, low back pain. Pt states he has seen many providers, but no clear etiology for BLE numbness/tingling and gait difficulties have been identified. Pt states he is scheduled for CTA head/neck and Thoracic MRI. Pt is right handed. ADL status: Ind IADL status: Ind Fine-motor skills: No issues Micrographia: No issues Vision changes: denies vision changes, diplopia Hypophonia: Denies Hyposmia: Denies Dysphagia: Denies Drooling: Denies Orthostatic lightheadedness: Briefly. Occasional brief orthostatic internal spinning dizzines GI: Denies issue. Denies constipation. : Denies Slowness: Denies Freezing episodes: Only if sitting or standing a long time. Tremor: Denies Involuntary movements: Denies Dyskinesia: Denies Stiffness: Denies. Again sometimes occasional neck pain nonradiating. Paresthesias: as above Gait changes: as above Sleep difficulty: No issues Parasomnias: Denies Memory impairment: Hallucinations: States memory is good Usual exercise: does exercise, push-ups, weight training 4-5 x's every day- thought this would help the leg s/s, but it didn't. History of concussion/head injury? Denies History of neuroleptic (metoclopramide/antipsychotics) use? Denies History of psychiatric hospitalizations? Denies History of occupational chemical exposures? 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 Used to smoke- pt quit. Remote h/o alcohol intake- pt cannot quantify, states quit many yrs ago. Family history of movement disorders? Denies Family history of mood disorder or suicide? Denies Per review of [facility] and [facility] records: He has seen Dr Lindo, [facility] neurology, Dr Bassett, [facility] neurosurgery, and Dr Love, [facility] vascular. * 08/06/2022, Brain MRI, [facility]: No evidence of acute infarct, extensive white matter changes likely due to chronic small vessel ischemic changes. * 11/01/23, BLE EMG/NCS: [id number] axonal sensory motor chronic peripheral neuropathy. * 06/16/23, c-spine MRI w/o: 1. 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 CTA of the neck is suggested for complete assessment. 2. Multilevel degenerative changes with mild canal stenosis at C5-6, though there is no cord compression at any level. 3. Mild multilevel neural foraminal stenosis due to uncovertebral and facet spurring. There is also edema in the right C4-5 facet suggesting underlying inflammation/stress. * 04/27/23, per Dr Lindo note- notes that pt has had at least 2 neuro visits at [facility] since 2012 for h/o of cramps and gait difficulties * 07/13/23, per Dr Love's notes: PVD, but not likely to be causing pt's BLE s/s. Right ABIs?noncompressible of the PT, DP 1.14 within normal values. Although some?vessel calcification, it does have a normal amplitude.? In the left side, WILLY is 1.33 within normal values, and it does have a normal amplitude as well. * 07/19/23, per Dr Bassett's note: c-spine and l-spine MRI showed age-related degenerative changes, which were not felt to be of a degree to cause pt's BLE s/s. Pt was advised to have t-spine MRI. [facility] lab work-up 07/08/23: BMP normal 12/2023: Sed rate 11 B6 9.3 B12 582 Folic acid 29.2 Thiamine 83.5 MMA 166 CK 193 Thiamine 83.5 SPEP no monoclonal protein present RICKI no monoclonal protein identified SPEP no monoclonal protein identified PFSH Medical History Tobacco use Surgical History H/O hemorrhoidectomy History of nephrectomy, left Social History Alcohol intake: never Patient Tobacco Use Status: Former Tobacco user Physical Exam Vital Signs: Last Vital Signs Pulse 53 03/28/24 09:14 BP 128/58 L 03/28/24 09:14 Pulse Ox 97 03/28/24 09:14 Oxygen Delivery Method Room Air 03/28/24 09:14 BMI result Body Mass Index 18.6 Const General: cooperative and no acute distress HEENT Face and sinus: Yes other (Decreased expression and blink) Resp Effort & Inspection: normal respiratory effort and able to speak in complete sentences Cardio Rate: regular rate Rhythm: regular rhythm Neuro Other: General: A&O x's 3 Expression: Intact, mildly decreased Voice: Intact Tremor: None Foot taps: Poor fluidity on left Gait: Slow to stand w/o hands, decreased arm swing, short steps, slight antalgic/high step. Psych: Pleasant affect General: Normal light touch and pain sensation Cranial nerves: Yes CN's II-XII intact bilaterally (w/ mild right facial asymmetry (? 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 Check labs to round out neuropathy work-up. May hold alpha lipoic acid 600 mg daily in hopes this reduces tingling sensation. Discussed doing PT again, patient declines at this time. Follow-up upon review of above. And in clinic in 6 months or sooner p.r.n.. Orders: Orders Vitamin B1 04/04/24 D64.9 - Anemia, unspecified, G62.9 - Polyneuropathy, unspecified, D50.9 - Iron deficiency anemia, unspecified, I10 - Essential (primary) hypertension, Z85.528 - Personal history of other malignant neoplasm of kidney Vitamin B6 04/04/24 D64.9 - Anemia, unspecified, G62.9 - Polyneuropathy, unspecified, D50.9 - Iron deficiency anemia, unspecified, I10 - Essential ( primary) hypertension, Z85.528 - Personal history of other malignant neoplasm of kidney Vitamin B3 (Niacin) 04/04/24 D64.9 - Anemia, unspecified, G62.9 - Polyneuropathy, unspecified, D50.9 - Iron deficiency anemia, unspecified, I10 - Essential (primary) hypertension, Z85.528 - Personal history of other malignant neoplasm of kidney Magnesium 04/04/24 D64.9 - Anemia, unspecified, G62.9 - Polyneuropathy, unspecified, D50.9 - Iron deficiency anemia, unspecified, I10 - Essential (primary) hypertension, Z85.528 - Personal history of other malignant neoplasm of kidney Comprehensive Met. Panel 04/04/24 D64.9 - Anemia, unspecified, G62.9 - Polyneuropathy, unspecified, D50.9 - Iron deficiency anemia, unspecified, I10 - Essential (primary) hypertension, Z85.528 - Personal history of other malignant neoplasm of kidney Protein Electrophoresis 24HrUr 04/04/24 D64.9 - Anemia, unspecified, G62.9 - Polyneuropathy, unspecified, D50.9 - Iron deficiency anemia, unspecified, I10 - Essential (primary) hypertension, Z85.528 - Personal history of other malignant neoplasm of kidney Hemoglobin A1c 04/04/24 D64.9 - Anemia, unspecified, G62.9 - Polyneuropathy, unspecified, D50.9 - Iron deficiency anemia, unspecified, I10 - Essential (primary) hypertension, Z85.528 - Personal history of other malignant neoplasm of kidney IRON PROFILE 04/04/24 D64.9 - Anemia, unspecified, G62.9 - Polyneuropathy, unspecified, D50.9 - Iron deficiency anemia, unspecified, I10 - Essential (primary) hypertension, Z85.528 - Personal history of other malignant neoplasm of kidney Methylmalonic Acid 04/04/24 D64.9 - Anemia, unspecified, G62.9 - Polyneuropathy, unspecified, D50.9 - Iron deficiency anemia, unspecified, I10 - Essential (primary) hypertension, Z85.528 - Personal history of other malignant neoplasm of kidney Homocysteine 03/28/24 D64.9 - Anemia, unspecified, G62.9 - Polyneuropathy, unspecified, D50.9 - Iron deficiency anemia, unspecified, I10 - Essential (primary) hypertension, Z85.528 - Personal history of other malignant neoplasm of kidney Vitamin B12 and Folate 04/04/24 D64.9 - Anemia, unspecified, G62.9 - Polyneuropathy, unspecified, D50.9 - Iron deficiency anemia, unspecified, I10 - Essential (primary) hypertension, Z85.528 - Personal history of other malignant neoplasm of kidney Vitamin B5 (Pantothenic Acid) 04/04/24 D64.9 - Anemia, unspecified, G62.9 - Polyneuropathy, unspecified, D50.9 - Iron deficiency anemia, unspecified, I10 - Essential (primary) hypertension, Z85.528 - Personal history of other malignant neoplasm of kidney Vitamin B2 (Riboflavin) 04/04/24 D64.9 - Anemia, unspecified, G62.9 - Polyneuropathy, unspecified, D50.9 - Iron deficiency anemia, unspecified, I10 - Essential (primary) hypertension, [id number] - Personal history of other malignant neoplasm of kidney Complete Blood Count Auto Diff 04/04/24 D64.9 - Anemia, unspecified, G62.9 - Polyneuropathy, unspecified, D50.9 - Iron deficiency anemia, unspecified, I10 - Essential (primary) hypertension, Z85.528 - Personal history of other malignant neoplasm of kidney TSH reflex Free T4 04/04/24 D64.9 - Anemia, unspecified, G62.9 - Polyneuropathy, unspecified, D50.9 - Iron deficiency anemia, unspecified, I10 - Essential (primary) hypertension, Z85.528 - Personal history of other malignant neoplasm of kidney DAREN Reflex Titer and Pattern 04/04/24 D64.9 - Anemia, unspecified, G62.9 - Polyneuropathy, unspecified, D50.9 - Iron deficiency anemia, unspecified, I10 - Essential (primary) hypertension, [id number] - Personal history of other malignant neoplasm of kidney Rheumatoid Factor 04/04/24 D64.9 - Anemia, unspecified, G62.9 - Polyneuropathy, unspecified, D50.9 - Iron deficiency anemia, unspecified, I10 - Essential (primary) hypertension, Z85.528 - Personal history of other malignant neoplasm of kidney Folate 04/04/24 D64.9 - Anemia, unspecified, G62.9 - Polyneuropathy, unspecified, D50.9 - Iron deficiency anemia, unspecified, I10 - Essential (primary) hypertension, Z85.528 - Personal history of other malignant neoplasm of kidney Ferritin 04/04/24 D50.9 - Iron deficiency anemia, unspecified, G62.9 - Polyneuropathy, unspecified Coding Level of Care Code Est Pt Level 4 (23568) Diagnoses Sensory motor neuropathy G62.9 Anemia, iron deficiency D50.9 Anemia D64.9 Gait difficulty R26.9
== END 2024-03-28 10:11 | disposition home or self-care (01) ==
PROVIDERS: PCP Internal Medicine; Visit Provider Nurse Practitioner Family
DX: G62.9 Polyneuropathy, unspecified (principal); D50.9 Iron deficiency anemia, unspecified; D64.9 Anemia, unspecified; R26.9 Unspecified abnormalities of gait and mobility
CPT/HCPCS: 99214

== ENCOUNTER → 2024-03-28 08:54 | Outpatient (BNVA) | payer OTHER, SELFPAY | PROVIDERS: PCP Internal Medicine; Visit Provider Nurse Practitioner Family | DX: G62.9 Polyneuropathy, unspecified (principal); D50.9 Iron deficiency anemia, unspecified; D64.9 Anemia, unspecified; R26.9 Unspecified abnormalities of gait and mobility | CPT/HCPCS: 99212 ==

== ENCOUNTER 2024-04-04 09:33 | Outpatient (REF) | payer OTHER, SELFPAY ==
[2024-04-04 17:57] LABS: MANUAL DIFF FLAG NO
[2024-04-04 18:05] LABS: Basophils Absolute Auto 0.1 X10*3/uL (0.0-0.2); Basophils Percent Auto 1.4 % (0-2); Eosinophils Absolute Auto 0.2 X10*3/uL (0.0-0.4); Eosinophils Percent Auto 4.6 % (0-4); Hemoglobin 13.9 g/dl (14.0-18.0); Imm Gran Abs Auto 0.01 X10*3/uL (0.00-0.03); Imm Gran Pct Auto 0.2 % (0.0-0.4); Lymphocytes Percent Auto 23.4 % (20-40); Mean Corpuscular HGB Conc 33.1 g/dl (31.0-36.0); Mean Corpuscular Hemoglobin 32.2 pg (27.0-33.0); Mean Corpuscular Volume 97.2 fL (80.0-98.0); Mean Platelet Volume 9.9 fL (9.4-12.4); Monocytes Absolute Auto 0.4 X10*3/uL (0.1-1.2); Monocytes Percent Auto 9.6 % (2-11); Neutrophils Absolute Auto 2.7 x10*3/uL (2.0-8.3); Neutrophils Percent Auto 60.8 % (45-73); Platelet Count 204 X10*3/uL (160-400); Red Blood Count 4.32 X10*6/uL (4.60-5.80); Red Cell Distribution Width 14.2 % (11.0-16.0); White Blood Count 4.4 X10*3/uL (4.8-10.8)
[2024-04-04 18:17] LABS: Rheumatoid Factor < 13.0 IU/mL (<15.0)
[2024-04-04 18:22] LABS: Alanine Aminotransferase 27 U/L (0-40); Albumin Level 4.4 g/dL (3.5-5.0); Alkaline Phosphatase 61 U/L (39-117); Anion Gap 9 (12-20); Aspartate Amino Transferase 45 U/L (5-37); Bilirubin Total 0.6 mg/dL (0.0-1.0); Blood Urea Nitrogen 25 mg/dL (9-16); Calcium 9.5 mg/dL (8.4-10.2); Carbon Dioxide 27 mmol/L (22-29); Chloride 111 mmol/L (96-108); Estimated Glomerular Filt Rate > 60; Glucose Random 105 mg/dL (60-115); Iron 93 mcg/dL (45-160); Magnesium 2.1 mg/dL (1.6-2.6); Percent Iron Saturation 36 % (15-50); Potassium 4.6 mmol/L (3.3-5.1); Sodium 142 mmol/L (135-145); Total Iron Binding Capacity 256 mcg/dL (228-428); Total Protein 7.6 g/dL (6.5-8.0); Unsaturated Iron Binding 163 ug/dL
[2024-04-04 18:39] LABS: Ferritin 186 ng/mL (20-250); TSH reflex Free T4 1.54 uIU/mL (0.32-4.0)
[2024-04-04 18:46] LABS: Folate 17.1 ng/mL (> or = 4.0); Vitamin B12 1004 pg/mL (200-900)
[2024-04-05 05:40] LABS: Estimated Average Glucose 111 mg/dL; Hemoglobin A1C 133.1183 umol/L; Hemoglobin A1c % 5.5 % (<6.0); Total Hemoglobin (HGBA1C) 3633.6749 umol/L
[2024-04-06 14:37] LABS: Anti Nuclear Antibody Screen NEGATIVE (NEGATIVE)
[2024-04-09 10:53] LABS: Methylmalonic Acid 169 nmol/L (69-390)
[2024-04-09 15:28] LABS: Nicotinamide 22 ng/mL (see note); Vit B3 - Nicotinic Acid <20 ng/mL (see note); Vitamin B2 (Riboflavin) 65.1 nmol/L (6.2-39.0)
== END 2024-04-04 09:34 | disposition home or self-care (01) ==
LOC: HO.HKASLDS 09:33
PROVIDERS: Visit Provider Nurse Practitioner Family
DX: D64.9 Anemia, unspecified (principal); G62.9 Polyneuropathy, unspecified; D50.9 Iron deficiency anemia, unspecified; I10 Essential (primary) hypertension; Z85.528 Personal history of other malignant neoplasm of kidney; Z13.1 Encounter for screening for diabetes mellitus
CPT/HCPCS: 36415; 80053; 82607; 82728; 82746; 83036; 83540; 83735; 83921; 84252; 84443; 84591; 85025; 86038; 86431

== ENCOUNTER 2024-04-11 08:05 | Outpatient (REF) | payer OTHER, SELFPAY ==
[2024-04-11 09:35] LABS: Folate 16.9 ng/mL (> or = 4.0)
[2024-04-16 05:28] LABS: Vitamin B6 21.8 ng/mL (2.1-21.7)
[2024-04-16 17:54] LABS: Vitamin B5 (Pantothenic Acid) 72 ng/mL (<275)
[2024-04-18 06:33] LABS: Vitamin B1 33 nmol/L (8-30)
== END 2024-04-11 08:06 | disposition home or self-care (01) ==
LOC: HO.LAB 08:05
PROVIDERS: Visit Provider Nurse Practitioner Family
DX: D64.9 Anemia, unspecified (principal); G62.9 Polyneuropathy, unspecified; D50.9 Iron deficiency anemia, unspecified; I10 Essential (primary) hypertension; Z85.528 Personal history of other malignant neoplasm of kidney
CPT/HCPCS: 36415; 82746; 83090; 84207; 84425; 84591

== ENCOUNTER 2025-03-07 11:05 | Outpatient (AMB) | payer OTHER, SELFPAY ==
[2025-03-07 11:21] VITALS: BP 120/80; PULSE 58; O2SAT 98; BMI 18.5
--- NOTE | 2025-03-07 11:21 | A.OFFVIS_ITS ---
Vital Signs 03/07/25 11:21 Height 5 ft 9 in Weight 125 lb BMI 18.5 BP 120/80 Blood Pressure Location Lt brachial Position Sitting Pulse 58 Pulse Source Pulse Oximeter Pulse Oximetry (%) 98 Oxygen Delivery Method Room Air Intake Visit Reasons: Follow up Provider Relations Consultant Required: No Accompanied by: Self / Same As Patient Allergies No Known Allergies Allergy (Verified 03/07/25 11:22) HPI Comments Details: 73-yr-old male presents for f/u of gait difficulty. He denies significant interval medical history changes. He wonders if there is a medication for his intermittent gait difficulties. He reports eh continues to have the same gait difficulties- he feels his gait is wavy or unstable after sitting too long or standing too long. It may be worse at night in the dark. The imbalance lasts seconds. He has been trying to stand more slowly, which helps some. Sometimes may have external spinning dizziness, but not when walking. He previously did PT for his gait, but felt this did not help. He denies off-balance being worse in the shower or when turning. He denies headaches. He denies hyposmia,tremor, parasomnias. He denies interval falls. He denies decreased perception of his feet or foot numbness- however during gait assessment today, he states his lower leg do feel numb He is exercising at home- 4 times a day. His BP runs low-normal. He states he is compliant with his home BP, aspirin, and statin therapy He has decreased his fluid intake, was drinking 4 16 fl oz water bottles per day, however decrease this to 1-2 bottles per day-for unclear reasoning. In the past, he would drink more Gatorade than water. 03/28/2024, HPI: Pt underwent left carotid endarterectomy on 12/01/[address] Benitez. He states this did not affect his gait difficulty in any way. He is scheduled for abdominal imaging d/t episodes of brief left abd sharp pains. He states his gait problem is the same. He states he tried the alpha lipoic acid, but it did not make any difference. He is taking 5 different supplements at home- states he will bring a list of them in to us. States his PCP has referred him to ?[facility]?, as he asks for a referral to [place] as he has not gotten any clear answers related to his gait issues. States one-person tells him 1 thing, and another tells him another thing. For instance, somebody told him to stop his BP medications, and his PCP told him not to. The he did undergo thoracic spine MRI W/O in July 2023, which showed multilevel degenerative changes without significant canal stenosis or neural foraminal narrowing. He continues to feel that when he is walking he feels off-balanced, like he is being pulled to the left or the right. Feels like he could fall at times, but never has fallen. He continues to feel numbness in the back of his calves. However, he states he is no longer having tingling in his legs. He still sometimes has difficulty initiating a step. Sometimes he can feel like the nerve is shaking in his legs. He does walk at least a mile every day. Also does a foot peddler every day. He states overall he exercises 4 times a day- push-ups, leg lifts, reaching for his toes, stretching. He does carry his laundry to the laundromat without difficulty, about a 1/4 mile up/down hill. 08/12/2023, MRI Thoracic Spine W/O Contrast: IMPRESSION: Degenerative changes throughout the thoracic spine but no significant canal stenosis or neural foraminal narrowing. Initial HPI from 07/21/2023: Pt reports for at least 6 months, when he stands up after sitting for a while or getting up from bed, has BLE numbness and tingling- like air in his posterior calves, and less so in bilateral thighs. When he stands up, he feels off- balance, like being pulled to the right or the left. Sometimes when on the ladder, he feels he is pulled to the side. Once when he was standing talking to someone for 45 minutes, and then it was difficult to initiate a step. He states he did PT, but it was helpful. Does exercises on his own, does not make a difference. He endorses occasional non-radiating neck pain. Pt denies foot numbness (he states he can feel the ground when walking), falls, leg cramps, weakness, low back pain. Pt states he has seen many providers, but no clear etiology for BLE numbness/tingling and gait difficulties have been identified. Pt states he is scheduled for CTA head/neck and Thoracic MRI. Pt is right handed. ADL status: Ind IADL status: Ind Fine-motor skills: No issues Micrographia: No issues Vision changes: denies vision changes, diplopia Hypophonia: Denies Hyposmia: Denies Dysphagia: Denies Drooling: Denies Orthostatic lightheadedness: Briefly. Occasional brief orthostatic internal spinning dizzines GI: Denies issue. Denies constipation. : Denies Slowness: Denies Freezing episodes: Only if sitting or standing a long time. Tremor: Denies Involuntary movements: Denies Dyskinesia: Denies Stiffness: Denies. Again sometimes occasional neck pain nonradiating. Paresthesias: as above Gait changes: as above Sleep difficulty: No issues Parasomnias: Denies Memory impairment: Hallucinations: States memory is good Usual exercise: does exercise, push-ups, weight training 4-5 x's every day- thought this would help the leg s/s, but it didn't. History of concussion/head injury? Denies History of neuroleptic (metoclopramide/antipsychotics) use? Denies History of psychiatric hospitalizations? Denies History of occupational chemical exposures? 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 Used to smoke- pt quit. Remote h/o alcohol intake- pt cannot quantify, states quit many yrs ago. Family history of movement disorders? Denies Family history of mood disorder or suicide? Denies Per review of [facility] and [facility] records: He has seen Dr Lindo, [facility] neurology, Dr Bassett, [facility] neurosurgery, and Dr Love, [facility] vascular. * 08/06/2022, Brain MRI, [facility]: No evidence of acute infarct, extensive white matter changes likely due to chronic small vessel ischemic changes. * 11/01/23, BLE EMG/NCS: Aheo-ly-fvffnkgm axonal sensory motor chronic peripheral neuropathy. 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 Right vertebral artery flow-void is smaller in caliber than prior MRI from 2012 with circumferential abnormal high T2 signal suggesting dissection of indeterminate age. CTA of the neck is suggested for complete assessment. * Multilevel degenerative changes with mild canal stenosis at C5-6, though there is no cord compression at any level. * Mild multilevel neural foraminal stenosis due to uncovertebral and facet spurring. There is also edema in the right C4-5 facet suggesting underlying inflammation/stress. * 04/27/23, per Dr Lindo note- notes that pt has had at least 2 neuro visits at [facility] since 2012 for h/o of cramps and gait difficulties * 07/13/23, per Dr Love's notes: PVD, but not likely to be causing pt's BLE s/s. Right ABIs?noncompressible of the PT, DP 1.14 within normal values. Although some?vessel calcification, it does have a normal amplitude.? In the left side, WILLY is 1.33 within normal values, and it does have a normal amplitude as well. * 07/19/23, per Dr Bassett's note: c-spine and l-spine MRI showed age-related degenerative changes, which were not felt to be of a degree to cause pt's BLE s/s. Pt was advised to have t-spine MRI. [facility] lab work-up 07/08/23: BMP normal 12/2023: Sed rate 11 B6 9.3 B12 582 Folic acid 29.2 Thiamine 83.5 MMA 166 CK 193 Thiamine 83.5 SPEP no monoclonal protein present RICKI no monoclonal protein identified SPEP no monoclonal protein identified PFSH Medical History Tobacco use Surgical History H/O hemorrhoidectomy History of nephrectomy, left Social History Alcohol intake: never Patient Tobacco Use Status: Former Tobacco user Physical Exam Vital Signs: Last Vital Signs Pulse 58 03/07/25 11:21 BP 120/80 03/07/25 11:21 Pulse Ox 98 03/07/25 11:21 Oxygen Delivery Method Room Air 03/07/25 11:21 BMI result Body Mass Index 18.5 Const General: cooperative and no acute distress HEENT Face and sinus: Yes other (Decreased expression and blink) Resp Effort & Inspection: normal respiratory effort and able to speak in complete sentences Cardio Rate: regular rate Rhythm: regular rhythm Neuro Other: General: A&O x's 3 Expression: Intact, mildly decreased Voice: Intact Tremor: None Foot taps: Poor fluidity on left Gait: Stance quicker today w/o hands, decreased arm swing, short steps, slight antalgic/high step. Psych: Pleasant affect Cranial nerves: Yes CN's II-XII intact bilaterally (w/ mild right facial asymmetry (? baseline)) Deep tendon reflexes (DTR's): Right patellar reflex intensity grade: 2+ and Left patellar reflex intensity grade: 2+ Psych Mental Status: mental status grossly normal Speech and movement: Normal speech and movement present Affect: normal affect Attitude: cooperative Thought process: Normal thought process present Results Reviewed Results Reviewed: 06/14/2024, CT Head/Brain W/O Contrast INDICATION: Hx of Present Illness: pt reports neck and chin feel numb x3 days. Poor historian and vague when explaining symptoms.; Reason: Other:; Neuro deficit, acute, stroke suspected; Clinical Question(s): Other:; Hematoma Infarction TECHNIQUE: Noncontrast head CT using axial technique and reconstructed in axial and coronal planes. Iterative reconstruction techniques are used to optimize dose and image quality. CTDIvol Body: 14.30 mGy, DLP Body: 360 mGy*cm. CTDIvol Head: 47.20 mGy, DLP Head: 772 mGy*cm. COMPARISON: None. FINDINGS: Human Development Professor view findings, lines and tubes: None. BRAIN AND EXTRA-AXIAL SPACES: No parenchymal hemorrhage, midline shift, or mass effect. Pacheco-white matter differentiation is well preserved. No acute infarct. Negative insular ribbon and hyperdense vessel signs. Mild prominence of the ventricles and sulci consistent with parenchymal volume loss. Moderate low-density white matter changes. No subarachnoid hemorrhage. No subdural or epidural collection. CALVARIUM, SKULL BASE, AND SOFT TISSUES: No fractures or suspicious bony lesions. Mild mucosal thickening of the ethmoid air cells. The remaining paranasal sinuses are clear. The mastoid air cells are clear. Visualized orbits and globes are intact. The extracranial soft tissues are unremarkable. IMPRESSION: No acute intracranial pathology. 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 Also re-reviewed previous workup, including head imaging, spinal imaging, lower extremity EMG/NCS, vascular studies- which has not refilled 1 Singulair etiology of his transient off-balance sensation after sitting or standing for prolonged times. Based on today's discussion, there may be a component of orthostatic hypotension, and thus he is encouraged to: * Increase fluid intake to at least 64-80 oz of fluid per day, including at least 116 out serving Gatorade or a electrolyte replacement beverage * Add a very small amount of salt to daily food intake * Perform foot taps after standing or sitting for prolonged periods * Stand slowly Continue alpha lipoic acid 600 mg daily in hopes this reduces tingling sensation. Continue aspirin, amlodipine, statin Follow-up with [facility] vascular as scheduled Discussed doing PT again, patient declines at this time. Offered patient to undergo tilt-table test, he would like to wait at this time. Discussed with the patient that I would hold on starting a medication for intermittent gait difficulties, until he has consistently try the above in undergone orthostatic blood pressure monitoring if these symptoms persist despite increasing his fluid and salt intake. Follow-up in clinic in 6 months or sooner p.r.n.. Coding Level of Care Code Est Pt Level 4 (56064) Diagnoses Sensory motor neuropathy G62.9 Gait difficulty R26.9
--- OUTSIDE RECORDS SUMMARY | 2025-03-07 14:29 | XMS_ITS | Encounter Summary ---
Author Organization [facility] Address [address] [place] [id number] Care Team Providers Care Pacu Nurse Name Role Phone Roldan Price DO Primary Care Provider [phone] Encounter Details Date Type Department Care Team (Late st Contact Info) Description 03/27/2024 Lab Requisition [facility] [address] [facility] [place] [address] Roc Burt MD [address] [place] [address] Malignant neoplasm of overlapping sites of bladder (CMS/HCC V24, CMS/HCC V28) Social History Tobacco Use Types Packs/Day Years Used Date Smoking Tobacco: Every Day Cigarettes Alcohol Use Standard Drinks/Week Comments Yes 0 (1 standard drink = 0.6 oz pur e alcohol) Sex and Gender Information Value Date Recorded Sex Assigned at Not on file Legal Sex Male 10:01 AM EST Gender Identity Not on file Sexual Orientation Not on file documented as of this encounter Plan of Treatment Not on file documented as of this encounter Procedures Procedure Name Priority Date/Time Associated Diagnosis Comments AP OUTSIDE CONSULT Routine 03/13/2024 12 :00 AM EST Malignant neoplasm of overlapping sites of bladder (CMS/HCC) documented in this encounter Results * Anatomic pathology outside consult (03/13/2024 12:00 AM EST) Addendum Results of UroVysion fluorescence in situ hybridization (FISH) testing: CEP3: Normal CEP7: Normal CEP17: Normal LSI 9p21: Normal Interpretation: Normal profile Controls stained appropriately. Note: The results are intended as a screening device and should be interpreted in association with other clinical and pathological findings. 04/12/2024 8:39 AM [facility] Addendum electronically signed by Levon Gomez MD on 04/12/2024 at 0839 EST Final Diagnosis A. Urine, Voided, ([id number]): Negative for high grade urothelial carcinoma. Note: UroVysion testing to follow. 04/12/2024 8:39 AM [facility] at 1716 EST Clinical Information Urine cytology/UroVysi on. Malignant neoplasm of overlapping sites of bladder C67.8 04/12/2024 8:39 AM [facility] Gross Description A. Urine, Voided, ([id number]): Received one ThinPrep slide for cytology and one ThinPrep slide for UroVysion 04/12/2024 8:39 AM [facility] Disclaimer Unless otherwise specified, all tissue is 10% NB formalin fixed and paraffin embedded. Technical pathology services provided by [facility] at [address], [place] [address] (CLIA #[id number]/Rosemary Cagle MD, Ergonomist) 04/12/2024 8:39 AM [facility] Tissue Urine specimen from urethra / Unknown 03/13/2024 03/27/2024 10:05 AM EST us Roc Burt MD LAB PATHOLOGY ORDERABLES Edited Result - Final [facility] [address] [place] [address], documented in this encounter Visit Diagnoses Diagnosis Malignant neoplasm of overlapping sites of bladder (CMS/HCC V24, CMS/HCC V28) documented in this encounter Care Teams Pacu Nurse Relationship Specialty Start Date End Date Roldan Price DO [address] [place] [phone] PCP - General 06/03/17 documented as of this encounter
--- OUTSIDE RECORDS SUMMARY | 2025-03-07 14:29 | XMS_ITS | Clinical Summary ---
Author Organization [facility] Address [address] [place] [address] Phone Care Team Providers Care Heavy Cleaner Name Role Phone Pcp, Unknown Primary Care Provider Unavailabl e Social History Tobacco Use Types Packs/Day Years Used Date Smoking Tobacco: Never Assessed Education Answer Date Recorded Are you interested in more education? Not on kunal e 03/28/2024 Are you concerned about learning? Not on file 03/28/2024 No 03/28/2024 No 03/28/2024 Digital Access Answer Date Recorded No 03/28/2024 No 03/28/2024 Reliable internet access at home? Not on file 03/28/2024 Device with a working camera? Not on file Sex and Gender Information Value Date Recorded Sex Assigned at Male 03/27/2024 4:11 PM EST Legal Sex Male 4:02 PM EST Gender Identity Male 03/27/2024 4:11 PM EST Sexual Orientation Something else 03/27/2024 4: 11 PM EST Plan of Treatment Upcoming Encounters Date Type Department Care Team (Late st Contact Info) Description 05/29/2025 8:00 AM EDT Office Visit [facility] [address] [place] [address], [address] Floor, [address] [place] [address] Geraldine Segura MD, MSc [address] [place], [place] [address] [place] [address] [email or web address] Maintenance Due Date Last Done Comments Adult Td,Tdap Booster 1950 LIPID PANEL 1951 DEPRESSION SCREENING 1963 SMOKING Hx and SMOKELESS TOB ACCO SCREENING 02/18/1964 HEPATITIS C SCREENING 1969 COLOGUARD 02/18/1996 COLONOSCOPY 02/18/1996 COLORECTAL CANCER SCREENING 02/18/1996 FIT TEST 02/18/1996 FOBT 02/18/1996 SIGMOIDOSCOPY 02/18/1996 VIRTUAL COLONOSCOPY 02/18/1996 PNEUMOCOCCAL VACCINES (50+ y ears) (1 of 1 - PCV) 2001 ZOSTER VACCINES (1 of 2) 2001 INFLUENZA VACCINE (#1) 2024 COVID-19 VACCINE (1 - 2024-2 6 season) 2024 RSV VACCINE (1 - 1-dose 75+ series) 2026 HEPATITIS A VACCINES Aged Out No long er eligible based on patient's age to complete this topic HIB VACCINES Aged Out No longer eligi ble based on patient's age to complete this topic MENINGOCOCCAL VACCINES (ACWY) Aged Out No longer eligible based on patient's age to complete this topic MENINGOCOCCAL VACCINES (B) Aged Out N o longer eligible based on patient's age to complete this topic Medical Devices Not on file Insurance MEDICARE REPLACEMENT [employer] [id number] MEDICARE REPLACEMENT MEDICARE REPLACEMENT MEDICARE REPLACEMENT MEDICARE REPLACEMENT [facility] MEDICARE REPLACEMENT Care Teams Heavy Cleaner Relationship Specialty Start Date End Date Pcp, Unknown PCP - General 03/27/24 Additional Source Comments The information contained in this document represents components of the legal health record. It is not the complete legal health record[facility]
--- OUTSIDE RECORDS SUMMARY | 2025-03-07 14:29 | XMS_ITS | Clinical Summary ---
Author Organization [address] Address [address] [place] [address] Phone Care Team Providers Care Seam Feller Name Role Phone Roldan Price DO Primary Care Provider [phone] Allergies No known active allergies Medications CYANOCOBALAMIN, VITAMIN B-12, ORAL Take 1 Tab by mouth daily. 1000mg Active amLODIPine (NORVASC) 10 mg tablet Take 10 mg by mouth daily. Active ascorbic acid, vitamin C, 500 mg capsule Take 1 tablet by mouth 1 (one) time each day. Active ferrous sulfate 325 mg (65 mg elemental iron) tablet Take 325 mg by mouth daily. Active aspirin 81 mg capsule Take 81 mg by mouth. 08/18/2023 Active atorvastatin (LIPITOR) 20 mg tablet Take 1 tablet (20 mg total) by mouth 1 (one) time each day. Active Active Problems Problem Noted Date Diagnosed Date Anemia, iron deficiency 08/29/2024 Carotid artery stenosis without cerebral infarct ion 08/29/2024 Gait instability 08/29/2024 LVH (left ventricular hypertrophy) 08/29/2024 Right renal artery stenosis 08/29/2024 Malignant neoplasm of kidney 08/29/2024 Ureter cancer 08/29/2024 PVD (peripheral vascular disease) 08/29/2024 Hyperlipidemia 06/04/2024 Lung mass 06/04/2024 HTN (hypertension) 06/04/2024 Transitional cell carcinoma 06/04/2024 Bladder cancer 06/04/2024 H/O left nephrectomy 06/04/2024 Pancreatic cyst 06/04/2024 Assessment & Plan (06/04/2024 12:18 PM EDT): Discussed pancreatic cystic lesions in depth. Recommend 1-year MRI for surveillance. Order placed today along with 1-yr recall. Orders: MR Abdomen wo and w Contrast MRCP; Future Encounters Date Type Department Care Team Description 02/18/2025 8:45 AM EST Lab Draw Station - [address] [address] Pure hypercholesterolemia, unspecified 01/16/2025 9:00 AM EDT Lab Draw Station - [address] [address] Hyperlipemia (Primary Dx); Essential hypertension, malignant; Enlarged prostate with urinary obstruction; Routine general medical examination at a health care facility from Last 3 Months Immunizations Immunization Administration Dates Next Due Influenza Quadravalent, 0.5m l (Fluzone High-dose) 65yo and older 01/05/2023 Influenza trivalent, 0.5mL ( Fluzone High-dose) 65yo and older 12/14/2023,03/31/2022 Tdap Tetanus diptheria acell ular pertussis (Boostrix; Adacel) 7yo and older 10/15/2008 Surgical History Surgery Date Site/Laterality Comments OTHER SURGICAL HISTORY PROCEDURE: DENIES PREVIOUS SURGERY FLEXIBLE SIGMOIDOSCOPY 03/11/14 PROCEDURE: MN SIGMOIDOSCOPY FLX DX W/COLLJ SPEC BR/WA IF PFRMD; COMMENT: hyperplastic rectal polyps COLONOSCOPY 01/17/09 PROCEDURE: HISTORICAL COLONOSCOPY; COMMENT: adenoma and hemorrhoids; repeat in five years COLONOSCOPY 04/05/14 PROCEDURE: HISTORICAL COLONOSCOPY; COMMENT: hemorrhoids; repeat in 5 yrs COLONOSCOPY 01/18/2022 10-yr recall ESOPHAGOGASTRODUODENOSCOPY 01/18/2022 NEPHRECTOMY Left EXCISIONAL HEMORRHOIDECTOMY Family History Medical History Relation Name Comments Pancreatic cancer Neg Hx Relation Name Status Comments Brother 1 Alive Brother 2 Alive Brother 3 Alive Father Mother Sister 1 Alive Sister 2 Alive Social History Tobacco Use Types Packs/Day Years Used Date Smoking Tobacco: Former Cigarettes Tobacco Cessation:Counseling Given: Not Answered Alcohol Use Standard Drinks/Week Comments Not Currently 0 (1 standard drink = 0.6 oz pur e alcohol) Sex and Gender Information Value Date Recorded Sex Assigned at Not on file Legal Sex Male 10:01 AM EST Gender Identity Not on file Sexual Orientation Not on file Last Filed Vital Signs Vital Sign Reading Time Taken Comments Blood Pressure - - Pulse - - Temperature - - Respiratory Rate - - Oxygen Saturation - - Inhaled Oxygen Concentration - - Weight 57.6 kg (127 lb) 09/03/2024 12:25 PM EDT Height 175.3 cm (5' 9 ) 09/03/2024 12:25 PM EDT Body Mass Index 18.75 09/03/2024 12:25 PM EDT Plan of Treatment Health Maintenance Due Date Last Done Comments Pneumococcal Vaccine: 50+ Years (1 of 2 - PCV) 1970 Zoster Vaccines (1 of 2) 1970 RSV Immunization Adult Patients (1 - Risk 50-74 years 1-dose series) 2001 DTaP,Tdap,and Td Vaccines (2 - Td or Tdap) 10/15/2018 10/15/2008 Abdominal Aortic Aneurysm (AAA) Screen 02/16/2022 Falls Risk Assessment 02/16/2022 Hepatitis C Screening 02/16/2022 Medicare Annual Wellness Visit 02/16/2022 Social Influencers of Health Screening 02/16/2022 Depression Screening 03/21/2024 COVID-19 Vaccine ( season) 2024 04/09/2021, 08/09/2020, 06/10/2020 Hypertension/CHF/CAD Annual BMP Blood Test 02/18/2026 02/18/2025, 01/16/2025, 06/05/2024, Additional history exists Colorectal Cancer Screening: Colonoscopy 01/18/2027 01/18/2022, 04/05/2014 Cholesterol Screening (Lipid Panel) 02/18/2030 02/18/2025, 01/16/2025, 06/05/2024 Influenza Vaccine Completed 12/17/2024, , 01/05/2023, Additional history exists HIB Vaccines Aged Out No longer eligi ble based on patient's age to complete this topic HPV Vaccines Aged Out No longer eligi ble based on patient's age to complete this topic Hepatitis A Vaccines Aged Out No long er eligible based on patient's age to complete this topic Hepatitis B Vaccines Aged Out No long er eligible based on patient's age to complete this topic IPV Vaccines Aged Out No longer eligi ble based on patient's age to complete this topic MMR Vaccines Aged Out No longer eligi ble based on patient's age to complete this topic Meningococcal ACWY Vaccine Aged Out N o longer eligible based on patient's age to complete this topic Meningococcal B Vaccine Aged Out No l onger eligible based on patient's age to complete this topic RSV Immunization Patients Under 20 months Aged Out No longer eligible based on patient's age to complete this topic Varicella Vaccines Aged Out No longer eligible based on patient's age to complete this topic Procedures Procedure Name Priority Date/Time Associated Diagnosis Comments LIPID PANEL WITH REFLEX TO DIRECT LDL Routine 02/18/2025 8:42 AM EST Pure hypercholesterolemi a, unspecified CREATINE KINASE Routine 02/18/2025 8:42 AM EST Pure hypercholesterolemi a, unspecified COMPREHENSIVE METABOLIC PANEL Routine 02/18/2025 8:42 AM EST Pure hypercholesterolemi a, unspecified CBC WITH AUTO DIFFERENTIAL Routine 01/16/2025 9:00 AM EDT Hyperlipemia Essential hypertension, malignant Enlarged prostate with urinary obstruction Routine general medical examination at a health care facility HEMOGLOBIN A1C Routine 01/16/2025 9:00 AM EDT Hyperlipemia Essential hypertension, malignant Enlarged prostate with urinary obstruction Routine general medical examination at a health care facility COMPREHENSIVE METABOLIC PANEL Routine 01/16/2025 9:00 AM EDT Hyperlipemia Essential hypertension, malignant Enlarged prostate with urinary obstruction Routine general medical examination at a health care facility CBC AND DIFFERENTIAL Routine 01/16/2025 9:00 AM EDT Hyperlipemia Essential hypertension, malignant Enlarged prostate with urinary obstruction Routine general medical examination at a health care facility THYROID STIMULATING HORMONE Routine 01/16/2025 9:00 AM EDT Hyperlipemia Essential hypertension, malignant Enlarged prostate with urinary obstruction Routine general medical examination at a health care facility PROSTATE SPECIFIC ANTIGEN SCREEN Routine 01/16/2025 9:00 AM EDT Hyperlipemia Essential hypertension, malignant Enlarged prostate with urinary obstruction Routine general medical examination at a health care facility CREATINE KINASE Routine 01/16/2025 9:00 AM EDT Hyperlipemia Essential hypertension, malignant Enlarged prostate with urinary obstruction Routine general medical examination at a health care facility LIPID PANEL WITH REFLEX TO DIRECT LDL Routine 01/16/2025 9:00 AM EDT Hyperlipemia Essential hypertension, malignant Enlarged prostate with urinary obstruction Routine general medical examination at a [facility] care facility EXTERNAL COLONOSCOPY REPORT Routine 01/18/2022 3:35 PM EDT from Last 3 Months or Most Recently Relevant to Health Maintenance Results * Lipid panel with reflex to direct LDL (02/18/2025 8:42 AM EST) Only the most recent of2 resultswithin the time period is included. Cholesterol 188 0 - 200 mg/dL 02/18/2025 12:15 PM EST [facility] Triglycerides 73 0 - 150 mg/dL 02/18/2025 12:15 PM [facility] HDL 87 >=40 mg/dL 02/18/2025 12:15 PM EST [facility] LDL Calculated 86 0 - 100 mg/dL 02/18/2025 12:15 PM EST [facility] Comment:Estimated LDL Calcul ated using equation: Total cholesterol - HDL cholesterol - (Triglycerides/5) VLDL Cholesterol Jair 14.6 mg/dL 02/18/2025 12:15 PM [facility] Non HDL Chol. (LDL+VLDL) 101 <145 mg/dL 02/18/2025 12:15 PM EST [facility] Chol/HDL Ratio 2.2 0.0 - 4.4 02/18/2025 12:15 PM [facility] Blood Venipuncture / Unknown 02/18/2025 8:42 AM EST 02/18/2025 8:42 AM EST us Guerita Bowen NP LAB BLOOD ORDERABLES Fi nal Result [facility] [address] [place] [address], * Creatine kinase (02/18/2025 8:42 AM EST) Only the most recent of2 resultswithin the time period is included. [facility] Total CK 94 46 - 171 unit/L 02/18/2025 12:14 PM [facility] Blood Venipuncture / Unknown 02/18/2025 8:42 AM EST 02/18/2025 8:42 AM EST Guerita Bowen MUNICIPAL BOND TRADER LAB BLOOD ORDERABLES Fi nal Result [facility] [address] [place] [address], [place] [phone] * (ABNORMAL) Comprehensive metabolic panel (02/18/2025 8:42 AM EST) Only the most recent of2 resultswithin the time period is included. [facility] Sodium 140 133 - 145 mmol/L 02/18/2025 12:14 PM [facility] Potassium 4.8 3.5 - 5.5 mmol/L 02/18/2025 12:14 PM [facility] Chloride 103 96 - 110 mmol/L 02/18/2025 12:14 PM [facility] CO2 27 21 - 32 mmol/L 02/18/2025 12:14 PM [facility] Anion Gap 10 3 - 11 02/18/2025 12:14 PM [facility] Glucose 99 70 - 100 mg/dL 02/18/2025 12:14 PM [facility] BUN 27(H) 5 - 25 mg/dL 02/18/2025 12:14 PM [facility] Creatinine 1.16 0.70 - 1.30 mg/dL 02/18/2025 12:14 PM [facility] eGFR 66 >=60 mL/min/1. 73m2 02/18/2025 12:14 PM [facility] Comment:Calculation based on the Chronic Kidney Disease Epidemiology Collaboration (CKD-EPI) equation refit without adjustment for race. BUN/Creatinine Ratio 23.3 02/18/2025 12:14 PM [facility] Calcium 9.8 8.5 - 10.5 mg/dL 02/18/2025 12:14 PM [facility] AST (SGOT) 40 10 - 42 unit/L 02/18/2025 12:14 PM [facility] ALT (SGPT) 37 10 - 60 unit/L 02/18/2025 12:14 PM [facility] Alkaline Phosphatase 81 42 - 121 unit/L 02/18/2025 12:14 PM [facility] Total Protein 7.1 6.0 - 8.0 g/dL 02/18/2025 12:14 PM [facility] Albumin 4.4 3.2 - 5.0 g/dL 02/18/2025 12:14 PM [facility] Total Bilirubin 0.5 0.0 - 1.4 mg/dL 02/18/2025 12:14 PM [facility] Blood Venipuncture / Unknown 02/18/2025 8:42 AM EST 02/18/2025 8:42 AM EST us Guerita Bowen MUNICIPAL BOND TRADER LAB BLOOD ORDERABLES Fi nal Result [facility] [address] [place] [address], * (ABNORMAL) Prostate specific antigen screen (01/16/2025 9:00 AM EDT) PSA 5.29(H) 0.00 - 4.00 ng/mL LAB CHEMISTRY METHOD 01/16/2025 3:52 PM EDT [facility] Blood Venous blood specimen / Unknown Venipuncture / Unknown 01/16/2025 9:00 AM EDT 01/16/2025 9:00 AM EDT Narrative [facility] - 01/16/2025 3:52 PM EDT The Siemens Advia Centaur Chemiluminescent Immunoassay is used. Results obtained with different assay methods or kits cannot be used interchangeably. Results cannot be interpreted as absolute evidence of the presence or absence of malignant disease. us Guerita Bowen NP LAB BLOOD ORDERABLES Fi nal Result [facility] [address] [place] [address], [place] [phone] * (ABNORMAL) CBC auto differential (01/16/2025 9:00 AM EDT) WBC 4.9 4.8 - 10.8 K/mcL LAB HEMETOLOGY METHOD 01/16/2025 11:25 AM EDT [facility] RBC 4.20(L) 4.50 - 5.50 M/mcL LAB HEMETOLOGY METHOD 01/16/2025 11:25 AM EDT [facility] Hemoglobin 13.4(L) 13.5 - 17.5 g/dL LAB HEMETOLOGY METHOD 01/16/2025 11:25 AM EDT [facility] Hematocrit 41.0(L) 42.0 - 54.0 % LAB HEMETOLOGY METHOD 01/16/2025 11:25 AM EDT [facility] MCV 97.2 79.0 - 98.0 FL LAB HEMETOLOGY METHOD 01/16/2025 11:25 AM EDT [facility] MCH 31.8 27.0 - 32.0 pcg LAB HEMETOLOGY METHOD 01/16/2025 11:25 AM EDT [facility] MCHC 32.7 32.0 - 37.0 g/dL LAB HEMETOLOGY METHOD 01/16/2025 11:25 AM [facility] RDW 14.5 11.0 - 15.0 % LAB HEMETOLOGY METHOD 01/16/2025 11:25 AM [facility] Platelets 185 130 - 400 K/mcL LAB HEMETOLOGY METHOD 01/16/2025 11:25 AM [facility] MPV 9.6 7.0 - 11.0 FL LAB HEMETOLOGY METHOD 01/16/2025 11:25 AM [facility] NRBC 0.0 <1.0 % LAB HEMETOLOGY METHOD 01/16/2025 11:25 AM [facility] NRBC Absolute 0.00 <0.10 K/mcL LAB HEMETOLOGY METHOD 01/16/2025 11:25 AM [facility] Neutrophils Relative 59.7 % LAB HEMETOLOGY METHOD 01/16/2025 11:25 AM [facility] Lymphocytes Relative 23.9 % LAB HEMETOLOGY METHOD 01/16/2025 11:25 AM [facility] Monocytes Relative 9.7 % LAB HEMETOLOGY METHOD 01/16/2025 11:25 AM [facility] Eosinophils Relative 5.3 % LAB HEMETOLOGY METHOD 01/16/2025 11:25 AM [facility] Basophils Relative 1.2 % LAB HEMETOLOGY METHOD 01/16/2025 11:25 AM [facility] Immature Granulocytes Relative 0.2 % LAB HEMETOLOGY METHOD 01/16/2025 11:25 AM [facility] Neutrophils Absolute 2.95 1.50 - 7.00 K/mcL LAB HEMETOLOGY METHOD 01/16/2025 11:25 AM [facility] Lymphocytes Absolute 1.18 1.00 - 5.00 K/mcL LAB HEMETOLOGY METHOD 01/16/2025 11:25 AM EDT [facility] Monocytes Absolute 0.48 0.20 - 1.00 K/[facility] LAB HEMETOLOGY METHOD 01/16/2025 11:25 AM EDT [facility] Eosinophils Absolute 0.26 0.00 - 0.50 K/[facility] LAB HEMETOLOGY METHOD 01/16/2025 11:25 AM EDT [facility] Basophils Absolute 0.06 0.00 - 0.20 K/[facility] HEMETOLOGY METHOD 01/16/2025 11:25 AM EDT [facility] Immature Granulocytes Absolute 0.01 0.00 - 0.03 K/[facility] HEMETOLOGY METHOD 01/16/2025 11:25 AM EDT [facility] Blood Venous blood specimen / Unknown Venipuncture / Unknown 01/16/2025 9:00 AM EDT 01/16/2025 9:00 AM EDT us Guerita Bowen NP LAB BLOOD ORDERABLES Fi nal Result Performing Organization Address City/[facility]/ZIP Co de Phone Number [facility] [address] [place] [address], * Thyroid stimulating hormone (01/16/2025 9:00 AM EDT) TSH 2.16 0.40 - 4.00 mcIU/mL LAB CHEMISTRY METHOD 01/16/2025 5:24 PM EDT [facility] Blood Venous blood specimen / Unknown Venipuncture / Unknown 01/16/2025 9:00 AM EDT 01/16/2025 9:00 AM EDT us Guerita Bowen NP LAB BLOOD ORDERABLES Fi nal Result [facility] [address] [place] [address], [place] [phone] * Hemoglobin A1c (01/16/2025 9:00 AM EDT) Hemoglobin A1C 5.6 <6.5 % LAB CHEMISTRY METHOD 01/16/2025 12:22 PM EDT [facility] Mean Bld Glu Estim. 114 mg/dL LAB CHEMISTRY METHOD 01/16/2025 12:22 PM EDT [facility] Blood Venous blood specimen / Unknown Venipuncture / Unknown 01/16/2025 9:00 AM EDT 01/16/2025 9:00 AM EDT Guerita Bowen MUNICIPAL BOND TRADER LAB BLOOD ORDERABLES Fi nal Result [facility] [address] [place] [address], * External Colonoscopy Report (01/18/2022 3:35 PM EDT) Anatomical Region Laterality Modality Endoscopy Historical Provider GI~PROCEDURE ORDERABLES F inal Result from Last 3 Months or Most Recently Relevant to Health Maintenance Insurance [place]ICA[place] - [place] [facility] MEDICARE Member Subscriber Plan / Payer (Ef fective 2020-Present) Name:Joana Hernandez Relation to Subscriber:Self Name:Joana Hernandez Payer ID:[id number] Group ID:[id number] Type:Not on file Address: [place] [address] [address] [phone] Advance Directives Documents on File Type Date Recorded Patient Belt Polisher Expl anation Health Care Decision (hx) 05/20/2014 AD SIMEON DIRECTIVE Health Care Decision (hx) 05/20/2014 AD SIMEON DIRECTIVE Health Care Decision (hx) 05/20/2014 AD SIMEON DIRECTIVE Health Care Decision (hx) 05/20/2014 AD SIMEON DIRECTIVE Health Care Decision (hx) 05/20/2014 AD SIMEON DIRECTIVE Health Care Decision (hx) 05/20/2014 AD SIMEON DIRECTIVE Health Care Decision (hx) 05/20/2014 AD SIMEON DIRECTIVE Health Care Decision (hx) 05/20/2014 AD SIMEON DIRECTIVE Care Teams Seam Feller Relationship Specialty Start Date End Date Roldan Price DO [address] [place] [phone] PCP - General 06/03/17
--- OUTSIDE RECORDS SUMMARY | 2025-03-07 14:29 | XMS_ITS ---
Author Name [facility] Organization Unknown History of Medication Use Medication Directions Dispensed Refills Start Date End Date Stat amlodipine 10 mg tablet TAKE 1 TABLET BY MOUTH EVERY DAY active duloxetine 30 mg capsule,delayed release TAKE 1 CAPSULE BY MOUTH EVERY DAY active folic acid 1 mg tablet TAKE 1 TABLET BY MOUTH EVERY DAY active gabapentin 100 mg capsule TAKE 1 TO 3 CAPSULES BY MOUTH DAILY active multivitamin tablet TAKE 1 TABLET BY MOUTH EVERY DAY active Problems Problem Status Onset Date Problem Type Date of Resoluti on Source Paresthesia of right lower limb active 2023-06-29 ProblemAct [facility] Radicular pain active 2023-06-09 ProblemAct ENS _AONECT Encounters Encounter Type Encounter Reason Primary Diagnosis Location Date Ambulatory [facility] 06/23/2023 Ambulatory [facility] 06/10/2023 Ambulatory [facility] 06/09/2023 Ambulatory [facility] 06/09/2023 Ambulatory [facility] 06/09/2023 Ambulatory [facility] 06/08/2023 Ambulatory [facility] 06/08/2023 Ambulatory [facility] 06/06/2023 Ambulatory [facility] 06/06/2023
--- OUTSIDE RECORDS SUMMARY | 2025-03-07 14:29 | XMS_ITS | Encounter Summary ---
Author Organization [facility] Address [address] [place] [phone] Care Team Providers Care Annual Giving Director Name Role Phone WilliamRoldan lilly DO Primary Care Provider [phone] Encounter Details Date Type Department Care Team (Late st Contact Info) Description 05/22/2024 Lab Requisition [facility] - Main Lab [address] [facility] [place] [address] Opal Rios PA [address] [place], [place] [phone] Gross hematuria Social History Tobacco Use Types Packs/Day Years [...] Associated Diagnosis Comments AP OUTSIDE CONSULT Routine 05/16/2024 12 :00 AM EST Gross hematuria documented in this encounter Results * Anatomic pathology outside consult (05/16/2024 12:00 AM EST) Final Diagnosis Urine, voided: -ATYPICAL UROTHELIAL CELLS. Results of UroVysion fluorescence in situ hybridization (FISH) testing: CEP3: Normal CEP7: Normal CEP17: Normal LSI 9p21: Normal Interpretation: Normal profile Controls stained appropriately. Note: The results are intended as a screening device and should be interpreted in association with other clinical and pathological findings. 05/29/2024 5:23 PM EDT [facility] ([facility]) [facility] at 1723 EDT Clinical Information Gross hematuria R31.0 Urine Cytology/FISH (now) 05/29/2024 5:23 PM EDT [facility] Gross Description A. Urine, Voided, ([id number]): Received one ThinPrep slide for cytology and one ThinPrep slide for UroVysion FISH 05/29/2024 5:23 PM EDT [facility] Disclaimer Unless otherwise specified, all tissue is 10% NB formalin fixed and paraffin embedded. Technical pathology services provided by [facility] [address] [facility] [address] [place] [address] (CLIA #[id number]/Rosemary Cagle MD, Electric Lift Truck Driver) 05/29/2024 5:23 PM EDT [facility] Tissue Urine specimen from urethra / Unknown 05/16/2024 05/22/2024 10:15 AM EST us Opal CARRERA LAB PATHOLOGY ORDERABLES Final Result [facility] [address] [place] [address], documented in this encounter Visit Diagnoses Diagnosis Gross hematuria documented in this encounter Care Teams Annual Giving Director Relationship Specialty Start Date End Date Roldan Price DO [address] [place] [phone] PCP - General 06/03/17 documented as of this encounter
--- OUTSIDE RECORDS SUMMARY | 2025-03-07 14:29 | XMS_ITS | Encounter Summary ---
Author Organization [facility] Address [address] [place] [phone] Care Team Providers Care Outbound Sales Advisor Name Role Phone WilliamRoldan lilly DO Primary Care Provider [phone] Encounter Details Date Type Department Care Team (Late st Contact Info) Description 05/30/2024 Lab Requisition [facility] - Main Lab [address] [facility] [place] [address] Roc Burt MD [address] [place] [address] Neoplasm of unspecified behavior of bladder Social History Tobacco Use Types Packs/Day Years [...] Associated Diagnosis Comments AP OUTSIDE CONSULT Routine 05/24/2024 12 :00 AM EST Neoplasm of unspecified behavior of bladder documented in this encounter Results * Anatomic pathology outside consult (05/24/2024 12:00 AM EST) Addendum Results of UroVysion fluorescence in situ hybridization (FISH) testing: CEP3: Normal CEP7: Normal CEP17: Normal LSI 9p21: Normal Interpretation: Normal profile Controls stained appropriately. Note: The results are intended as a screening device and should be interpreted in association with other clinical and pathological findings. 06/06/2024 1:45 PM EDT [facility] Addendum electronically signed by Levon Gomez MD on 06/06/2024 at 1345 EDT Final Diagnosis A. Urine, Voided, ([id number]): Negative for high grade urothelial carcinoma. Note: UroVysion testing to follow. 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 Urine, Voided, ([id number]): Received one ThinPrep slide for cytology and one ThinPrep slide for UroVysion FISH 06/06/2024 1:45 PM EDT [facility] Disclaimer Unless otherwise specified, all tissue is 10% NB formalin fixed and paraffin embedded. Technical pathology services provided by [facility] [address] [facility] [address] [place] [address] (CLIA #[id number]/Rosemary Cagle MD, Malariologist) 06/06/2024 1:45 PM EDT [facility] Tissue Urine specimen from urethra / Unknown 05/24/2024 05/30/2024 7:42 AM EDT us Roc Burt MD LAB PATHOLOGY ORDERABLES Edited Result - Final [facility] [address] [place] [address], documented in this encounter Visit Diagnoses Diagnosis Neoplasm of unspecified behavior of bladder documented in this encounter Care Teams Outbound Sales Advisor Relationship Specialty Start Date End Date Roldan Price DO [address] [place] [phone] PCP - General 06/03/17 documented as of this encounter
--- OUTSIDE RECORDS SUMMARY | 2025-03-07 14:29 | XMS_ITS | Data Portability ---
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 We discussed the nature and etiology of this problem along with current treatment options. We discussed the expected course and outcomes and what to expect. We also discussed risks and benefits. All of their questions were answered today, and there was exhibited understanding and comprehension of all that was discussed. Time Spent: 15minutes were spent reviewing previous imaging and charting. 15 minutes were spent obtaining patient history. 10 minutes were spent on physical exam. 5minutes were spent explaining diagnosis and assessment. Today's [...] or impingement. I will refer him to [facility] neurosurgery for evaluation. He understands he needs [...] findings at length with the patient today. We discussed the nature and etiology of this problem along with current treatment options. We discussed the expected course and outcomes and what to expect. We also discussed risks and benefits. All of their questions were answered today, and there was exhibited understanding and comprehension of all that was discussed. Time Spent: 10 minutes were spent reviewing previous imaging and charting. 10 minutes were spent obtaining patient history. 5 minutes were spent on physical exam. 5minutes were spent explaining diagnosis and assessment. Today's [...] e disc disease on x-ray 2023 024 [facility] [address], [place], [address], 4 08:53:57 XR, lumbosacral spine, 2 or 3 view 2023 024 [email or web address] [facility], [address], [place], [address], 4 15:11:43 Medication Orders None recorded. Patient TargetsNo targets recorded. Patient Instructions Encounter Date Encounter Id Patient Instructions Last Modified By Organization Details Last Modified Time 06/09/2023 [id number] X-rays of the lumbar spine reveal extensive [...] ast No observ ation record ed. [email or web address] [facility] [address] [place] [address], [address], 06/28/2023 10:25:50 Result Notes None recorded. Problems Name Problem SNOMED Code Status Onset Date Resolution Date Notes Provider Name and Address Organization Details Recorded Time Radicular pain 15624844 Active 2023 HAIR BAUTISTA PA-C [address], [place], [address], [place] [facility] [place], P 4 11:09:10 Paresthesia of lower extremity 840340175 Active 2023 HARI BAUTISTA PA-C [address], [place], [address], [place] [facility] [place], P 4 11:10:18 Paresthesia of right lower limb 8708684349493 9106 Active 2023 HARI BAUTISTA PA-C [address], [place], [address], [place] [facility] [place], P 4 09:41:42 Problem Notes None recorded. Procedures Surgical History Date Name Laterality Status Provider Name and Address Organization Details Recorded Time total nephrectomy completed [facility] [place] 06/09/2023 10:36:23 Imaging Results None recorded. Procedure Notes None recorded. Medical Equipment None [...] Updated DateTime 06/09/2023 175.26 cm 21.4 kg/m2 68950.[address] [facility] [place], 06/09/2023 10:34:23 Social History None recorded. Functional Status Question Answer Note LastModified by Organizat ion Details LastModified Time Do you use any illicit or recreational drugs? No Information not available 06/09/2023 Do you or have you ever used any other forms of tobacco or nicotine? No Information not available 06/09/2023 What is your level of alcohol consumption? None Information not available 06/09/2023 Mental Status None recorded. Family History Relationship [...] Diagnosis SNOMED-CT Code Diagnosis ICD10 Code Diagnosis IMO Codes Diagnosis Note [id number] HARIS NEVAREZ [facility] [address] [address] 06/09/2023 09:51:36 06/09/2023 11:17:52 Low back pain 084633128 M54.50 Additional diagnosis detail: Lumbar pain Radicular pain 37371261 M54.10 Additional diagnosis detail: Radicular low back pain with paresthesi as Paresthesi a of lower extremity 326179444 R20.2 Additional diagnosis detail: Bilateral leg paresthesi a [id number] HARIS NEVAREZ [facility] [address] [address] 06/29/2023 09:04:41 06/29/2023 09:37:59 Radicular pain 15790465 M54.10 Additional diagnosis detail: Radicular low back pain with paresthesi as Paresthesi a of right lower limb 1451919883 3110697 R20.2 Additional diagnosis detail: Paresthesi a of right lower extremity Health Concerns Section Related Observation LastModified by Organization Detai ls LastModified Time None Recorded Concern Status LastModified by Organization Details LastModified Time None Recorded Advance Directives Directive None Recorded Payers Insurance Date Sequence Insurance Name Policy Number Policy Coleman Covered Member ID Coleman Member ID Guarantor Name 06/27/2023 1 [facility] - DOS ON OR AFTER 2022 - INTERMEDIATE OPTIONS AND ONE CARE (MEDICARE REPLACEMENT/AD VANTAGE - PPO) Joana Hernandez [id number] Joana Hernandez 06/06/2023 1 [employer] (POS II) Joana Hernandez [id number] Joana Hernandez 06/06/2023 1 [facility] - DOS ON OR AFTER 2022 - ONE CARE (MEDICARE REPLACEMENT/AD VANTAGE - HMO) Joana Hernandez [id number] Joana Hernandez Notes Date Note Type Note [...] he has been seen by neurology at [facility], Dr. Gonzalez [facility] vascular surgery for which she is having workup with bilateral lower extremity ultrasounds he states he has had a nerve conduction study EMG at [facility] and he has been seen by [place] [facility] surgeons in October 2022. Information was [...] breath. Images that were reviewed within the [facility] PACS system were his brain MRI, bilateral tib-fib x-rays and chest x-rays were reviewed. Pertinent to his medical history he had a left nephrectomy for which she states was approximately 15 years ago due to kidney cancer. He states he gets annual checks [facility] [address] [place] [address] Pat ient: JOANA HERNANDEZ/Age/Sex: 1950 - 72 - MUnit#: [id number] Location/Status: SPDIMRI/REG CLIAccount#: [id number] Mnemonic/Ordering Site: BRAINWO/SPMAINOrdering Physician: NEAL WILSON MD MR Brain WO - 08/06/22 -MRI brain without gadolinium. August 06linical history: Bilateral leg weakness.Comparison: CT brain dated [...] date/Time: 08/07/222106 [facility] [address] [place] [address] [facility] ient: JOANA HERNANDEZ/Age/Sex: 1950 - 72 - MUnit#: [id number] Location/Status: [facility] CLIAccount#: [id number] Mnemonic/Ordering Site: [facility] Physician: NEAL WILSON MD CR Tibia Fibula Bilat 2 Views - 07/30/22 - 0941HISTORY: The patient is a 72-year-old male with pain in the left lower leg.No history of trauma is provided.FINDINGS: AP and lateral radiographs of the left tibia and fibula areobtained. The study demonstrates no fracture, dislocation, arthriticchange, or other bony normality. No soft tissue abnormality is seen.IMPRESSION: Normal examination.Code 39586Ciupouugq Physician: TONI COLLAZO MDElectronically Signed by: TONI COLLAZO [facility] Date/Time: 07/30/22951Sign date/Time: 07/30/22951 [facility] [address] [place] [address] [facility] ient: JOANA HERNANDEZ/Age/Sex: 1950 - 72 - MUnit#: [id number] Location/Status: SPDIGEN/REG CLIAccount#: [id number] Mnemonic/Ordering Site: CHESTXR/SPDIOrdering Physician: NEAL WILSON MD [...] above consistent withCOPD. No change since 11/15/2013.Code 92607Mbyxosgpd Physician: TONI COLLAZO MDElectronically Signed by: TONI COLLAZO MDDic Date/Time: 07/05/2243Sign date/Time: 07/05/22942 HARI BAUTISTA PA-C [address] [place] [address], [phone], [place] [facility] [place], P 06/09/2023 11:19:38 4 text/html Patient is here for follow-up on his MRI results of his lumbar spine. No changes since his initial visit on 06/09/2023. Patient also had a MRI of his cervical spine for which a Dr. Porter Lindo ordered he is yet to follow-up with him. 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 Patient denies any changes in bladder or bowel habits or saddle anesthesia. Lyme titer negative [facility] [address] [place] [address] Pat ient: JOANA HERNANDEZ/Age/Sex: 1950 - 73 - MUnit#: [id number] Location/Status: SPDIMRI/REG CLIAccount#: [id number] Mnemonic/Ordering Site: LUMSPWO/SPMAINOrdering Physician: HARI BAUTISTA MR Lumbar Spine WO [...] CHARLOTTE SARKAR MDElectronically Signed by: CHARLOTTE SARKAR [facility]ITALmargaret Date/Time: 06/27/23 0841Sign date/Time: 06/27/23 0845 HARI BAUTISTA PA-C [address] [place] [address], [phone], [place] [facility] [place] P 06/29/2023 09:42:21
== END 2025-03-07 12:38 | disposition home or self-care (01) ==
PROVIDERS: PCP Internal Medicine; Visit Provider Nurse Practitioner Family
DX: G62.9 Polyneuropathy, unspecified (principal); R26.9 Unspecified abnormalities of gait and mobility
CPT/HCPCS: 99214

== ENCOUNTER → 2025-03-07 11:05 | Outpatient (BNVA) | payer OTHER, SELFPAY | PROVIDERS: Visit Provider Nurse Practitioner Family | DX: G62.9 Polyneuropathy, unspecified (principal); R26.9 Unspecified abnormalities of gait and mobility | CPT/HCPCS: 99212 ==